=== PATIENT | female | born 1970 | race Caucasian/White ===

== ENCOUNTER 2017-12-11 20:17 | Inpatient (IN) | payer SELFPAY ==
[~2017-12-11] VITALS: Ht 167.6 cm; Wt 97.8 kg
[2017-12-11 21:12] LABS: BASOPHILS % (AUTO) 0.6 % (0.0-5.0); EOSINOPHILS % (AUTO) 3.4 % (0.0-8.0); HEMATOCRIT 41.2 % (42-54); LYMPHOCYTES % (AUTO) 31.3 % (21.0-51.0); MEAN CORPUSCULAR HEMOGLOBIN 30.6 pg (27.0-33.0); MEAN CORPUSCULAR HGB CONC 34.1 g/dL (32.0-36.0); MEAN CORPUSCULAR VOLUME 89.7 fL (79-99); MONOCYTES % (AUTO) 8.5 % (3.0-13.0); NEUTROPHILS % (AUTO) 56.2 % (40.0-77.0); PLATELET COUNT (AUTO) 183 K/uL (130-400); RED BLOOD CELL COUNT(AUTO) 4.59 MIL/uL (4.50-6.20); RED CELL DISTRIBUTION WIDTH 13.4 % (11.0-15.5); WHITE BLOOD COUNT (AUTO) 6.2 K/uL (4.8-10.8)
[2017-12-11] MEDS ORDERED: IPRATROPIUM/ALBUTEROL SULFATE 3 ML SOLUTION IH ONE (21:16)
[2017-12-11 21:27] LABS: INR 0.96 (0.85-1.15); PARTIAL THROMBOPLASTIN TIME 23.7 SEC (26.3-35.5); PROTHROMBIN TIME 10.1 SEC (9.6-11.6)
[2017-12-11 21:33] LABS: RAPID GROUP A STREP NEGATIVE (NEGATIVE)
[2017-12-11] MEDS ORDERED: NITROGLYCERIN 0.4 MG SL TAB SL ONE (21:42)
[2017-12-11 21:45] LABS: ALANINE AMINOTRANSFERASE 30 U/L (12-78); ALBUMIN 3.8 g/dL (3.5-5.0); ASPARTATE AMINOTRANSFERASE 14 U/L (10-37); BILIRUBIN,TOTAL 0.4 mg/dL (0.2-1.0); CARBON DIOXIDE 29 mmol/L (21-32); CHLORIDE 94 mmol/L (101-111); CREATINE KINASE MB < 0.5 ng/mL (0.5-3.6); CREATINE KINASE, TOTAL 42 U/L (21-232); CREATININE 1.1 mg/dL (0.5-1.5); GLOMERULAR FILTR. RATE CALC 56 mL/min (>60); POTASSIUM 3.8 mmol/L (3.5-5.1); SODIUM SERUM 133 mmol/L (136-145); TOTAL PROTEIN, SERUM 7.8 g/dL (6.0-8.3); UREA NITROGEN, BLOOD 20 mg/dL (7-18)
[2017-12-11 21:46] LABS: GLUCOSE,RANDOM 511 mg/dL (70-105)
[2017-12-11 21:57] LABS: APPEARANCE,URINE Clear (CLEAR); BILIRUBIN,URINE Negative (NEGATIVE); COLOR,URINE Yellow (YELLOW); GLUCOSE, URINE (UA) >=1000 mg/dL (NEGATIVE); KETONES,URINE Negative (NEGATIVE); LEUKOCYTE ESTERASE ,URINE Negative (NEGATIVE); NITRATE,URINE Negative (NEGATIVE); OCCULT BLOOD,URINE Large (NEGATIVE); PROTEIN,URINE Negative (NEGATIVE); UROBILINOGEN,URINE 0.2 mg/dL (0.2-1.0)
[2017-12-11 22:14] LABS: WBC,URINE 0-1 /HPF (0-1)
[2017-12-11 22:15] LABS: BACTERIA,URINE Rare /HPF (None Seen); SQUAMOUS EPITHELIAL CELL,UR Few /LPF (0-2)
[2017-12-12] MEDS ORDERED: CEFTRIAXONE SODIUM 1 GM ONE (00:19)
[2017-12-12] MEDS ORDERED: AZITHROMYCIN 250 MG TABLET PO ONE (00:20)
[2017-12-12] MEDS ORDERED: SODIUM CHLORIDE 0.9% 1000ML 1,000 ML IV ONE (00:20)
[2017-12-12] MEDS: SODIUM CHLORIDE 0.9% 1000ML 1,000 ML IV SCH ×2 (04:38→14:38)
[2017-12-12] MEDS ORDERED: ACETAMINOPHEN-CODEINE 300/30MG TAB PO PRN (04:45)
[2017-12-12] MEDS: AZITHROMYCIN 500MG+NS 250ML 250 ML IV SCH (04:45)
[2017-12-12] MEDS ORDERED: CEFTRIAXONE 1GM/D5W 50ML 50 ML IV SCH (04:45)
[2017-12-12] MEDS ORDERED: ONDANSETRON HCL 4 MG/2 ML VIAL IV PRN (04:45)
[2017-12-12] MEDS ORDERED: ACETAMINOPHEN 325 MG TAB PO PRN (04:45)
[2017-12-12] MEDS ORDERED: HYDRALAZINE HCL 20 MG/ML VIAL IV PRN (04:45)
[2017-12-12 06:35] LABS: CREATININE 0.8 mg/dL (0.5-1.5); POTASSIUM 3.9 mmol/L (3.5-5.1)
[2017-12-12 06:46] LABS: BASOPHILS % (AUTO) 0.5 % (0.0-5.0); EOSINOPHILS % (AUTO) 3.3 % (0.0-8.0); HEMATOCRIT 40.4 % (36-48); LYMPHOCYTES % (AUTO) 36.1 % (21.0-51.0); MEAN CORPUSCULAR HEMOGLOBIN 30.6 pg (27.0-33.0); MEAN CORPUSCULAR VOLUME 89.8 fL (79-99); MONOCYTES % (AUTO) 7.5 % (3.0-13.0); NEUTROPHILS % (AUTO) 52.6 % (40.0-77.0); PLATELET COUNT (AUTO) 194 K/uL (130-400); RED CELL DISTRIBUTION WIDTH 13.4 % (11.0-15.5); WHITE BLOOD COUNT (AUTO) 6.2 K/uL (4.8-10.8)
[2017-12-12] MEDS ORDERED: IPRATROPIUM/ALBUTEROL SULFATE 3 ML SOLUTION IH ONE ×2 (07:11→13:16)
[2017-12-12] MEDS: IPRATROPIUM/ALBUTEROL SULFATE 3 ML SOLUTION IH SCH ×5 (07:24→21:29)
[2017-12-12] MEDS: INSULIN LISPRO 100 UNIT/ML 3ML SQ SCH ×4 (07:30→22:34)
[2017-12-12] MEDS: METHYLPREDNISOLONE SOD SUCC 125MG/2ML VIAL IV SCH ×2 (09:00→22:24)
[2017-12-12] MEDS: ENOXAPARIN SODIUM 40 MG/0.4 ML SYRINGE SQ SCH (09:00)
[2017-12-12] MEDS: PANTOPRAZOLE SODIUM 40 MG TABLET.DR PO SCH (09:00)
[2017-12-12] MEDS ORDERED: ENOXAPARIN SODIUM 40 MG/0.4 ML SYRINGE SQ ONE (09:47)
[2017-12-12] MEDS ORDERED: METHYLPREDNISOLONE SOD SUCC 40MG/ML 1ML ONE (09:47)
[2017-12-12] MEDS ORDERED: PANTOPRAZOLE SODIUM 40 MG TABLET.DR PO ONE (09:47)
[2017-12-12] MEDS ORDERED: AZITHROMYCIN 500MG+NS 250ML 250 ML IV ONE (09:47)
[2017-12-12 17:15] VITALS: BP 151/100
[2017-12-12] MEDS ORDERED: PRAS10TA6 PO (18:52)
[2017-12-12] MEDS ORDERED: GABA300S PO (18:52)
[2017-12-12] MEDS ORDERED: OMEG1CAP31 PO (18:52)
[2017-12-12] MEDS ORDERED: PITA2TAB2 PO (18:52)
[2017-12-12] MEDS ORDERED: OXCA300O4 PO (18:52)
[2017-12-12] MEDS ORDERED: SERT100T12 PO (18:52)
[2017-12-12] MEDS ORDERED: BUSP15TA3 PO (18:52)
[2017-12-12] MEDS ORDERED: OLME40TA8 PO (18:52)
[2017-12-12] MEDS ORDERED: ASPI-1114 PO (18:52)
[2017-12-12] MEDS ORDERED: INSU100V12 SQ (18:52)
[2017-12-12 20:25] VITALS: BP 121/71
[2017-12-12] MEDS: CEFTRIAXONE SODIUM 1 GM IVP SCH (22:24)
[2017-12-13] VITALS (8 sets, daily range): BP systolic 126–148; BP diastolic 51–96
[2017-12-13] MEDS: IPRATROPIUM/ALBUTEROL SULFATE 3 ML SOLUTION IH SCH ×6 (01:22→22:46)
[2017-12-13] MEDS: AZITHROMYCIN 500MG+NS 250ML 250 ML IV SCH (04:49)
[2017-12-13] MEDS: INSULIN LISPRO 100 UNIT/ML 3ML SQ SCH (06:56)
[2017-12-13] MEDS: SODIUM CHLORIDE 0.9% 1000ML 1,000 ML IV SCH ×2 (11:00→21:40)
[2017-12-13] MEDS: PANTOPRAZOLE SODIUM 40 MG TABLET.DR PO SCH (11:01)
[2017-12-13] MEDS: METHYLPREDNISOLONE SOD SUCC 125MG/2ML VIAL IV SCH ×2 (11:01→21:40)
[2017-12-13] MEDS: ENOXAPARIN SODIUM 40 MG/0.4 ML SYRINGE SQ SCH (11:02)
[2017-12-13] MEDS ORDERED: CEFD300C3 PO (11:53)
[2017-12-13] MEDS ORDERED: ALBU8.5H8 IH (11:53)
[2017-12-13] MEDS ORDERED: AZIT500T4 PO (11:53)
[2017-12-13] MEDS: INSULIN HUMULIN R 100 UNIT/ML 3ML SQ SCH ×3 (15:06→22:01)
[2017-12-13] MEDS ORDERED: INSULIN HUMULIN R 100 UNIT/ML 3ML SQ SCH ×2 (16:30→18:30)
[2017-12-13] MEDS: CEFTRIAXONE SODIUM 1 GM IVP SCH (21:39)
[2017-12-14] MEDS: IPRATROPIUM/ALBUTEROL SULFATE 3 ML SOLUTION IH SCH ×3 (02:02→10:20)
[2017-12-14 03:47] VITALS: BP 126/58
[2017-12-14] MEDS: AZITHROMYCIN 500MG+NS 250ML 250 ML IV SCH (04:56)
[2017-12-14] MEDS: SODIUM CHLORIDE 0.9% 1000ML 1,000 ML IV SCH (06:18)
[2017-12-14] MEDS: INSULIN HUMULIN R 100 UNIT/ML 3ML SQ SCH ×2 (06:24→12:11)
[2017-12-14 07:54] VITALS: BP 110/71
[2017-12-14] MEDS: METHYLPREDNISOLONE SOD SUCC 125MG/2ML VIAL IV SCH (09:50)
[2017-12-14] MEDS: ENOXAPARIN SODIUM 40 MG/0.4 ML SYRINGE SQ SCH (09:50)
[2017-12-14] MEDS: PANTOPRAZOLE SODIUM 40 MG TABLET.DR PO SCH (09:50)
[2017-12-14 11:48] VITALS: BP 121/69
== END 2017-12-14 13:30 | disposition home or self-care (01) | DRG 195 ==
LOC: EDSEX 20:17 → EDH 20:17 → EDHIP 20:18 → 4DH 12-12 16:55 → 4CH 12-13 18:52
PROVIDERS: ADMIT Family Medicine; ATTEND Family Medicine
DX: J18.1 Lobar pneumonia, unspecified organism (principal); I11.0 Hypertensive heart disease with heart failure; I50.9 Heart failure, unspecified; E11.65 Type 2 diabetes mellitus with hyperglycemia; I25.10 Atherosclerotic heart disease of native coronary artery without angina pectoris; F31.9 Bipolar disorder, unspecified; F43.10 Post-traumatic stress disorder, unspecified; F17.200 Nicotine dependence, unspecified, uncomplicated; E86.0 Dehydration
CPT/HCPCS: 36415; 71046; 80048; 80053; 81001; 82550; 82553; 82947; 82948; 84484; 85025; 85610; 85730; 87804; 87880; 93005; 94640; 94664; 99291; A4218; J0456; J0696; J1650; J1815; J2920; J2930; J7030

== ENCOUNTER 2018-05-15 00:29 | Observation (INO) | payer OTHER ==
[~2018-05-15] VITALS: Ht 167.6 cm; Wt 100.7 kg
[~2018-05-15 00:29] MED LIST: ALBU8.5H8 IH; ASPI-1114 PO; AZIT500T4 PO; BUSP15TA3 PO; CEFD300C3 PO; GABA300S PO; INSU100V12 SQ; OLME40TA8 PO; OMEG1CAP31 PO; OXCA300O4 PO; PITA2TAB2 PO; PRAS10TA6 PO; SERT100T12 PO
[2018-05-15] MEDS ORDERED: ASPIRIN 325 MG TABLET ONE (00:48)
[2018-05-15] MEDS ORDERED: LORAZEPAM 2 MG/ML 1 ML VIAL ONE (00:49)
[2018-05-15 00:57] LABS: BASOPHILS % (AUTO) 0.7 % (0.0-5.0); EOSINOPHILS % (AUTO) 4.1 % (0.0-8.0); LYMPHOCYTES % (AUTO) 25.2 % (21.0-51.0); MEAN CORPUSCULAR HEMOGLOBIN 31.2 pg (27.0-33.0); MEAN CORPUSCULAR HGB CONC 35.1 g/dL (32.0-36.0); MEAN CORPUSCULAR VOLUME 88.8 fL (79-99); MONOCYTES % (AUTO) 7.9 % (3.0-13.0); NEUTROPHILS % (AUTO) 62.1 % (40.0-77.0); NUCLEATED RED BLOOD CELLS 0.1 % (0.0-0.19); PLATELET COUNT (AUTO) 223 K/uL (130-400); RED BLOOD CELL COUNT(AUTO) 4.28 MIL/uL (4.00-5.50); RED CELL DISTRIBUTION WIDTH 13.9 % (11.0-15.5); WHITE BLOOD COUNT (AUTO) 7.4 K/uL (4.8-10.8)
[2018-05-15 01:04] LABS: CREATININE 0.8 mg/dL (0.5-1.5); POTASSIUM 3.1 mmol/L (3.5-5.1)
[2018-05-15 01:10] LABS: B-TYPE NATRIURETIC PEPTIDE 67 pg/mL (0-100)
[2018-05-15 01:11] LABS: INR 0.95 (0.85-1.15); PARTIAL THROMBOPLASTIN TIME 25.3 SEC (26.3-35.5)
[2018-05-15 01:28] LABS: ALBUMIN 3.4 g/dL (3.5-5.0); BILIRUBIN,TOTAL 0.3 mg/dL (0.2-1.0); CREATINE KINASE MB 0.6 ng/mL (0.5-3.6); TOTAL PROTEIN, SERUM 6.7 g/dL (6.0-8.3)
[2018-05-15] MEDS ORDERED: POTASSIUM BICARB/CIT AC 25 MEQ TABLET.EFF ONE (01:49)
[2018-05-15] MEDS ORDERED: POTASSIUM CHLORIDE 10% ELIXIR 20 MEQ/15 ML UDCUP PO PRN ×2 (04:30)
[2018-05-15] MEDS ORDERED: POTASSIUM CHLORIDE 20MEQ/100ML 100 ML IV PRN ×2 (04:30)
[2018-05-15] MEDS ORDERED: DEXTROSE 50%-WATER 50 ML DISP.SYRIN IV PRN (04:30)
[2018-05-15] MEDS ORDERED: GLUCAGON 1MG KIT 1 MG ML IM PRN (04:30)
[2018-05-15] MEDS ORDERED: LIDOCAINE HCL-MPF 1% 2ML VIAL IVP PRN ×2 (04:30)
[2018-05-15] MEDS ORDERED: POTASSIUM CHLORIDE 20 MEQ ERTAB PO PRN ×2 (04:30)
[2018-05-15 05:00] VITALS: BP 136/82
[2018-05-15] MEDS ORDERED: ONDANSETRON HCL MDV 20ML 2 MG/ML VIAL IVP PRN (05:45)
[2018-05-15] MEDS ORDERED: NITROGLYCERIN 0.4 MG SL TAB SL PRN (05:45)
[2018-05-15] MEDS: INSULIN HUMULIN R 100 UNIT/ML 3ML SQ SCH ×4 (05:45→21:15)
[2018-05-15] MEDS ORDERED: INSULIN HUMULIN R 100 UNIT/ML 3ML ONE (05:47)
[2018-05-15] MEDS: INSULIN GLARGINE 100 UNITS/ML 10 ML VIAL SQ SCH ×2 (05:53→19:42)
[2018-05-15 07:00] VITALS: BP 136/96
[2018-05-15] MEDS: ASPIRIN 325MG EC TAB 325 MG TABLET.DR PO SCH (08:29)
[2018-05-15] MEDS: FAMOTIDINE 20MG TAB 20 MG TAB PO SCH ×2 (08:29→19:39)
[2018-05-15] MEDS: ENOXAPARIN SODIUM 40 MG/0.4 ML SYRINGE SQ SCH (08:29)
[2018-05-15 08:42] LABS: ALBUMIN 3.1 g/dL (3.5-5.0); BILIRUBIN,TOTAL 0.2 mg/dL (0.2-1.0); CREATININE 0.8 mg/dL (0.5-1.5); POTASSIUM 3.9 mmol/L (3.5-5.1); TOTAL PROTEIN, SERUM 6.3 g/dL (6.0-8.3)
[2018-05-15 08:44] LABS: CREATINE KINASE, TOTAL 43 U/L (21-232); MYOGLOBIN 20 ng/mL (10-92)
[2018-05-15 08:45] LABS: CREATINE KINASE MB 0.5 ng/mL (0.5-3.6); TROPONIN I < 0.04 ng/mL (0.00-0.06)
[2018-05-15] MEDS: NITROGLYCERIN 1GM/1 INCH PACKET TD SCH ×2 (09:32→16:15)
[2018-05-15 12:00] VITALS: BP 142/89
[2018-05-15] MEDS: OXCARBAZEPINE 300 MG TAB PO SCH ×2 (13:22→19:39)
[2018-05-15] MEDS: BUSPIRONE HCL 5 MG TABLET PO SCH ×2 (13:22→19:39)
[2018-05-15 13:57] LABS: CREATINE KINASE MB 0.7 ng/mL (0.5-3.6); CREATINE KINASE, TOTAL 43 U/L (21-232); MYOGLOBIN 17 ng/mL (10-92); TROPONIN I < 0.04 ng/mL (0.00-0.06)
[2018-05-15 16:00] VITALS: BP 136/84
[2018-05-15] MEDS: CARVEDILOL 3.125 MG TABLET PO SCH (19:39)
[2018-05-15 19:51] VITALS: BP 157/89
[2018-05-15 23:40] VITALS: BP 139/90
[2018-05-16] MEDS: NITROGLYCERIN 1GM/1 INCH PACKET TD SCH ×3 (01:36→16:47)
[2018-05-16 04:09] VITALS: BP 121/79
[2018-05-16] MEDS: INSULIN HUMULIN R 100 UNIT/ML 3ML SQ SCH ×4 (06:23→21:53)
[2018-05-16] MEDS: INSULIN GLARGINE 100 UNITS/ML 10 ML VIAL SQ SCH ×2 (06:23→21:51)
[2018-05-16 07:00] VITALS: BP 143/78
[2018-05-16] MEDS: ENOXAPARIN SODIUM 40 MG/0.4 ML SYRINGE SQ SCH (08:09)
[2018-05-16] MEDS: LIVALO 2 MG PO SCH (09:00)
[2018-05-16] MEDS: CARVEDILOL 3.125 MG TABLET PO SCH ×2 (09:00→22:01)
[2018-05-16] MEDS: BUSPIRONE HCL 5 MG TABLET PO SCH ×3 (09:16→22:00)
[2018-05-16] MEDS: PRASUGREL HCL 10 MG TABLET PO SCH (09:16)
[2018-05-16] MEDS: SERTRALINE HCL 50 MG TABLET PO SCH (09:17)
[2018-05-16] MEDS: OXCARBAZEPINE 300 MG TAB PO SCH ×3 (09:17→22:01)
[2018-05-16] MEDS: LOSARTAN 100 MG TABLET PO SCH (09:17)
[2018-05-16] MEDS: ASPIRIN 325MG EC TAB 325 MG TABLET.DR PO SCH (09:17)
[2018-05-16] MEDS: LORAZEPAM 0.5 MG TABLET PO PRN ×2 (09:17→16:51)
[2018-05-16] MEDS: FAMOTIDINE 20MG TAB 20 MG TAB PO SCH ×2 (09:17→21:59)
[2018-05-16] MEDS ORDERED: REGADENOSON 0.4 MG/5 ML PF SYG IVP SCH (10:45)
[2018-05-16 13:32] VITALS: BP 141/94
[2018-05-16 16:00] VITALS: BP 141/94
[2018-05-16] MEDS ORDERED: ACETAMINOPHEN 325 MG TAB PO PRN (17:30)
[2018-05-16] MEDS ORDERED: ALPRAZOLAM 0.5 MG TABLET PO PRN (19:45)
[2018-05-16 20:00] VITALS: BP 155/107
[2018-05-16 23:33] VITALS: BP 133/77
[2018-05-17] MEDS: NITROGLYCERIN 1GM/1 INCH PACKET TD SCH ×2 (01:53→09:10)
[2018-05-17 03:41] LABS: BASOPHILS % (AUTO) 0.5 % (0.0-5.0); EOSINOPHILS % (AUTO) 3.4 % (0.0-8.0); HEMATOCRIT 39.9 % (36-48); MEAN CORPUSCULAR HEMOGLOBIN 30.7 pg (27.0-33.0); MEAN CORPUSCULAR HGB CONC 34.7 g/dL (32.0-36.0); MEAN CORPUSCULAR VOLUME 88.5 fL (79-99); MONOCYTES % (AUTO) 8.1 % (3.0-13.0); PLATELET COUNT (AUTO) 219 K/uL (130-400); RED CELL DISTRIBUTION WIDTH 14.2 % (11.0-15.5); WHITE BLOOD COUNT (AUTO) 6.2 K/uL (4.8-10.8)
[2018-05-17 03:42] LABS: CREATININE 0.8 mg/dL (0.5-1.5)
[2018-05-17 03:55] VITALS: BP 114/75
[2018-05-17] MEDS: INSULIN HUMULIN R 100 UNIT/ML 3ML SQ SCH ×2 (06:23→12:09)
[2018-05-17] MEDS: INSULIN GLARGINE 100 UNITS/ML 10 ML VIAL SQ SCH (06:30)
[2018-05-17 07:13] VITALS: BP 161/91
[2018-05-17 07:16] VITALS: BP 122/85
[2018-05-17] MEDS: LIVALO 2 MG PO SCH (09:00)
[2018-05-17] MEDS: ASPIRIN 325MG EC TAB 325 MG TABLET.DR PO SCH (09:07)
[2018-05-17] MEDS: OXCARBAZEPINE 300 MG TAB PO SCH (09:07)
[2018-05-17] MEDS: LOSARTAN 100 MG TABLET PO SCH (09:07)
[2018-05-17] MEDS: BUSPIRONE HCL 5 MG TABLET PO SCH (09:07)
[2018-05-17] MEDS: FAMOTIDINE 20MG TAB 20 MG TAB PO SCH (09:08)
[2018-05-17] MEDS: CARVEDILOL 3.125 MG TABLET PO SCH (09:08)
[2018-05-17] MEDS: SERTRALINE HCL 50 MG TABLET PO SCH (09:08)
[2018-05-17] MEDS: PRASUGREL HCL 10 MG TABLET PO SCH (09:08)
[2018-05-17] MEDS: ENOXAPARIN SODIUM 40 MG/0.4 ML SYRINGE SQ SCH (09:10)
[2018-05-17 11:37] VITALS: BP 137/75
== END 2018-05-17 13:20 | disposition home or self-care (01) ==
LOC: EDH 00:29 → EDHIP 00:30 → 2DH 04:38
PROVIDERS: ADMIT Family Medicine; ATTEND Family Medicine
DX: R07.89 Other chest pain (principal); I25.10 Atherosclerotic heart disease of native coronary artery without angina pectoris; E11.65 Type 2 diabetes mellitus with hyperglycemia; I11.0 Hypertensive heart disease with heart failure; I50.9 Heart failure, unspecified; E78.5 Hyperlipidemia, unspecified; I25.2 Old myocardial infarction; I25.5 Ischemic cardiomyopathy; F17.210 Nicotine dependence, cigarettes, uncomplicated; F31.9 Bipolar disorder, unspecified; F43.10 Post-traumatic stress disorder, unspecified; Z82.49 Family history of ischemic heart disease and other diseases of the circulatory system; Z83.3 Family history of diabetes mellitus; Z95.5 Presence of coronary angioplasty implant and graft; Z79.82 Long term (current) use of aspirin; Z79.899 Other long term (current) drug therapy
CPT/HCPCS: 36415 ×2; 71045; 78452; 80048; 80053 ×2; 80061; 82550 ×3; 82553 ×3; 82948 ×10; 83036; 83874 ×3; 83880; 84484 ×3; 85025 ×2; 85610; 85730; 93005 ×3; 93017; 93306; 96372 ×3; 99285; A9500 ×2; G0378 ×61; J1650 ×3; J1815 ×4; J2060; J2785; 96374

== ENCOUNTER 2018-05-17 23:18 | Emergency (ER) | payer OTHER ==
[2018-05-17 23:32] LABS: BASOPHILS % (AUTO) 0.6 % (0.0-5.0); EOSINOPHILS % (AUTO) 1.1 % (0.0-8.0); HEMATOCRIT 43.4 % (36-48); LYMPHOCYTES % (AUTO) 18.3 % (21.0-51.0); MEAN CORPUSCULAR HEMOGLOBIN 30.4 pg (27.0-33.0); MEAN CORPUSCULAR HGB CONC 34.4 g/dL (32.0-36.0); MEAN CORPUSCULAR VOLUME 88.4 fL (79-99); MONOCYTES % (AUTO) 5.5 % (3.0-13.0); NEUTROPHILS % (AUTO) 74.5 % (40.0-77.0); NUCLEATED RED BLOOD CELLS 0.1 % (0.0-0.19); PLATELET COUNT (AUTO) 226 K/uL (130-400); RED BLOOD CELL COUNT(AUTO) 4.91 MIL/uL (4.00-5.50); RED CELL DISTRIBUTION WIDTH 14.2 % (11.0-15.5); WHITE BLOOD COUNT (AUTO) 9.5 K/uL (4.8-10.8)
[2018-05-17 23:46] LABS: INR 1.03 (0.85-1.15); PARTIAL THROMBOPLASTIN TIME 25.6 SEC (26.3-35.5); PROTHROMBIN TIME 10.8 SEC (9.6-11.6)
[2018-05-18 00:05] LABS: CREATININE 0.9 mg/dL (0.5-1.5)
[2018-05-18 00:31] LABS: ALBUMIN 4.1 g/dL (3.5-5.0); BILIRUBIN,TOTAL 0.6 mg/dL (0.2-1.0); TOTAL PROTEIN, SERUM 7.6 g/dL (6.0-8.3)
== END 2018-05-18 01:15 | disposition home or self-care (01) ==
LOC: EDH 23:18
DX: R00.2 Palpitations (principal); R07.9 Chest pain, unspecified; I25.10 Atherosclerotic heart disease of native coronary artery without angina pectoris; I11.0 Hypertensive heart disease with heart failure; I50.9 Heart failure, unspecified; E11.9 Type 2 diabetes mellitus without complications; E78.5 Hyperlipidemia, unspecified; I25.2 Old myocardial infarction; F43.10 Post-traumatic stress disorder, unspecified; F12.10 Cannabis abuse, uncomplicated
CPT/HCPCS: 36415; 71045; 80053; 82550; 83874; 83880; 84484; 85025; 85610; 85730; 93005; 94761

== ENCOUNTER 2018-09-19 17:10 | Emergency (ER) | payer OTHER ==
[2018-09-19 17:31] LABS: BASOPHILS % (AUTO) 0.9 % (0.0-5.0); EOSINOPHILS % (AUTO) 1.8 % (0.0-8.0); HEMATOCRIT 46.5 % (36-48); LYMPHOCYTES % (AUTO) 24.3 % (21.0-51.0); MEAN CORPUSCULAR HGB CONC 34.6 g/dL (32.0-36.0); MEAN CORPUSCULAR VOLUME 89.6 fL (79-99); NUCLEATED RED BLOOD CELLS 0.1 % (0.0-0.19); PLATELET COUNT (AUTO) 237 K/uL (130-400); RED BLOOD CELL COUNT(AUTO) 5.19 MIL/uL (4.00-5.50); RED CELL DISTRIBUTION WIDTH 13.6 % (11.0-15.5); WHITE BLOOD COUNT (AUTO) 7.9 K/uL (4.8-10.8)
[2018-09-19 17:54] LABS: CREATININE 0.7 mg/dL (0.5-1.5); POTASSIUM 3.6 mmol/L (3.5-5.1)
[2018-09-19 17:56] LABS: PARTIAL THROMBOPLASTIN TIME 26.8 SEC (26.3-35.5); PROTHROMBIN TIME 10.5 SEC (9.6-11.6)
[2018-09-19 17:59] LABS: ALBUMIN 4.2 g/dL (3.5-5.0); BILIRUBIN,TOTAL 0.6 mg/dL (0.2-1.0)
[2018-09-19 18:14] LABS: B-TYPE NATRIURETIC PEPTIDE 63 pg/mL (0-100)
[2018-09-19] MEDS ORDERED: ASPIRIN 325 MG TABLET ONE (18:43)
[2018-09-19] MEDS ORDERED: LORAZEPAM 2 MG/ML 1 ML VIAL ONE (18:44)
== END 2018-09-19 19:34 | disposition home or self-care (01) ==
LOC: EDH 17:10
DX: F41.9 Anxiety disorder, unspecified (principal); I25.10 Atherosclerotic heart disease of native coronary artery without angina pectoris; I11.0 Hypertensive heart disease with heart failure; I50.9 Heart failure, unspecified; E78.5 Hyperlipidemia, unspecified; I25.2 Old myocardial infarction; E11.9 Type 2 diabetes mellitus without complications; F43.10 Post-traumatic stress disorder, unspecified
CPT/HCPCS: 36415; 71045; 80053; 82550; 82948; 83880; 84484; 85025; 85610; 85730; 93005; 96374; 99285; J2060

== ENCOUNTER 2019-06-06 03:02 | Inpatient (IN) | payer OTHER ==
[~2019-06-06] VITALS: Ht 167.6 cm; Wt 91.3 kg
[2019-06-06 03:36] LABS: EOSINOPHILS % (AUTO) 4.1 % (0.0-8.0); HEMATOCRIT 40.2 % (36-48); LYMPHOCYTES % (AUTO) 27.2 % (21.0-51.0); MEAN CORPUSCULAR HEMOGLOBIN 30.4 pg (27.0-33.0); MEAN CORPUSCULAR HGB CONC 34.1 g/dL (32.0-36.0); MEAN CORPUSCULAR VOLUME 89.1 fL (79-99); MONOCYTES % (AUTO) 5.8 % (3.0-13.0); NEUTROPHILS % (AUTO) 61.9 % (40.0-77.0); PLATELET COUNT (AUTO) 208 K/uL (130-400); RED BLOOD CELL COUNT(AUTO) 4.51 MIL/uL (4.00-5.50); RED CELL DISTRIBUTION WIDTH 13.5 % (11.0-15.5); WHITE BLOOD COUNT (AUTO) 8.3 K/uL (4.8-10.8)
[2019-06-06] MEDS ORDERED: ONDANSETRON HCL 4 MG/2 ML VIAL ONE (03:39)
[2019-06-06 03:42] LABS: CREATININE 0.7 mg/dL (0.5-1.5); POTASSIUM 3.5 mmol/L (3.5-5.1)
[2019-06-06 03:47] LABS: ALBUMIN 3.7 g/dL (3.5-5.0); BILIRUBIN,TOTAL 0.2 mg/dL (0.2-1.0)
[2019-06-06 03:51] LABS: B-TYPE NATRIURETIC PEPTIDE 150 pg/mL (0-100)
[2019-06-06] MEDS ORDERED: ASPIRIN 325 MG TABLET ONE (04:32)
[2019-06-06] MEDS ORDERED: FUROSEMIDE 10 MG/ML 4ML VIAL ONE (04:32)
[2019-06-06] MEDS ORDERED: NITROGLYCERIN 1GM/1 INCH PACKET TD ONE (04:32)
[2019-06-06] MEDS ORDERED: ONDANSETRON HCL 4 MG/2 ML VIAL IV PRN (05:00)
[2019-06-06] MEDS ORDERED: IPRATROPIUM/ALBUTEROL SULFATE 3 ML SOLUTION IH PRN (05:00)
[2019-06-06] MEDS ORDERED: DEXTROSE 50%-WATER 50 ML DISP.SYRIN IV PRN (05:00)
[2019-06-06] MEDS ORDERED: GLUCAGON 1MG KIT 1 MG ML IM PRN (05:00)
[2019-06-06] MEDS ORDERED: ACETAMINOPHEN 325 MG TAB PO PRN ×2 (05:00)
[2019-06-06] MEDS ORDERED: NITROGLYCERIN 0.4 MG SL TAB SL PRN (05:00)
[2019-06-06 05:11] LABS: HEMOGLOBIN A1C 9.4 % (4.0-6.0)
[2019-06-06 05:28] LABS: BILIRUBIN,URINE Negative (NEGATIVE); COLOR,URINE Yellow (YELLOW); GLUCOSE, URINE (UA) 500 mg/dL (NEGATIVE); KETONES,URINE Negative (NEGATIVE); LEUKOCYTE ESTERASE ,URINE Small (NEGATIVE); NITRATE,URINE Negative (NEGATIVE); OCCULT BLOOD,URINE Trace (NEGATIVE); PROTEIN,URINE Negative (NEGATIVE); UROBILINOGEN,URINE 0.2 mg/dL (0.2-1.0)
[2019-06-06 05:29] LABS: APPEARANCE,URINE SLIGHTLY CLOUDY (CLEAR)
[2019-06-06] MEDS ORDERED: POTASSIUM CHLORIDE 20MEQ/100ML 100 ML IV PRN (05:30)
[2019-06-06] MEDS ORDERED: MAGNESIUM 2GM PREMIX 50ML 50 ML IV PRN (05:30)
[2019-06-06] MEDS ORDERED: POTASSIUM CHLORIDE 10% ELIXIR 20 MEQ/15 ML UDCUP PO PRN (05:30)
[2019-06-06] MEDS ORDERED: LIDOCAINE HCL-MPF 1% 2ML VIAL IVP PRN (05:30)
[2019-06-06 05:35] LABS: AMPHET/METH SCREEN,URINE NEGATIVE (NEGATIVE); BARBITURATE SCREEN, URINE NEGATIVE (NEGATIVE); BENZODIAZEPINES SCREEN,URINE NEGATIVE (NEGATIVE); CANNABINOID SCREEN,URINE POSITIVE (NEGATIVE); COCAINE SCREEN,URINE NEGATIVE (NEGATIVE); OPIATE SCREEN,URINE NEGATIVE (NEGATIVE); PHENCYCLIDINE SCREEN,URINE NEGATIVE (NEGATIVE)
[2019-06-06 05:40] LABS: BACTERIA,URINE Moderate /HPF (None Seen); TRICHOMONAS,URINE Rare /LPF (None Seen)
[2019-06-06] MEDS: METRONIDAZOLE 500MG/100ML BAG 100 ML IV SCH ×3 (06:00→21:29)
[2019-06-06] MEDS: ZOSYN 3.375GM+NS 50ML 50 ML IV SCH ×3 (06:15→22:55)
[2019-06-06] MEDS ORDERED: METRONIDAZOLE 500MG/100ML BAG 100 ML ONE (06:17)
[2019-06-06] MEDS ORDERED: SODIUM CHLORIDE 3% FOR INHALATION 4 ML/AMP VIAL.NEB IH ONE ×2 (06:51→11:40)
[2019-06-06] MEDS ORDERED: ZOSYN 3.375GM+NS 50ML 50 ML IV ONE (07:20)
[2019-06-06] MEDS: INSULIN HUMULIN R 100 UNIT/ML 3ML SQ SCH ×4 (07:30→21:37)
[2019-06-06] MEDS: FUROSEMIDE 10 MG/ML 4ML VIAL IVP SCH ×2 (08:00→17:33)
[2019-06-06] MEDS ORDERED: FAMOTIDINE 20MG TAB 20 MG TAB ONE (08:34)
[2019-06-06] MEDS ORDERED: ENOXAPARIN SODIUM 40 MG/0.4 ML SYRINGE SQ ONE (08:34)
[2019-06-06] MEDS ORDERED: METOPROLOL TARTRATE 25 MG TAB ONE (08:35)
[2019-06-06] MEDS ORDERED: ASPIRIN 325 MG TABLET PO SCH (09:00)
[2019-06-06] MEDS: ENOXAPARIN SODIUM 40 MG/0.4 ML SYRINGE SQ SCH (09:00)
[2019-06-06] MEDS: FAMOTIDINE 20MG TAB 20 MG TAB PO SCH ×2 (09:00→20:39)
[2019-06-06 11:31] LABS: INR 0.95 (0.85-1.15); PARTIAL THROMBOPLASTIN TIME 27.3 SEC (26.3-35.5)
[2019-06-06 11:46] LABS: CHOLESTEROL 179 mg/dL (<200); CREATINE KINASE, TOTAL 61 U/L (21-232); HDL CHOLESTEROL 113 mg/dL (35-85); LDL DIRECT 116 mg/dL (0-99); MYOGLOBIN 21 ng/mL (10-92); TRIGLYCERIDES 201 mg/dL (30-200); TROPONIN I < 0.04 ng/mL (0.00-0.06)
[2019-06-06 12:50] VITALS: BP 135/85
[2019-06-06] MEDS: METOPROLOL TARTRATE 25 MG TAB PO SCH ×2 (15:02→20:39)
[2019-06-06 16:23] VITALS: BP 122/77
[2019-06-06 19:30] VITALS: BP 117/65
[2019-06-06 20:23] LABS: CREATINE KINASE, TOTAL 38 U/L (21-232); MYOGLOBIN 29 ng/mL (10-92); TROPONIN I < 0.04 ng/mL (0.00-0.06)
[2019-06-07] VITALS (7 sets, daily range): BP systolic 110–152; BP diastolic 79–93
[2019-06-07] MEDS: METRONIDAZOLE 500MG/100ML BAG 100 ML IV SCH ×3 (04:14→22:30)
[2019-06-07 04:35] LABS: BASOPHILS % (AUTO) 0.4 % (0.0-5.0); EOSINOPHILS % (AUTO) 4.1 % (0.0-8.0); HEMATOCRIT 39.9 % (36-48); LYMPHOCYTES % (AUTO) 26.5 % (21.0-51.0); MEAN CORPUSCULAR HEMOGLOBIN 31.1 pg (27.0-33.0); MEAN CORPUSCULAR HGB CONC 34.6 g/dL (32.0-36.0); MEAN CORPUSCULAR VOLUME 89.7 fL (79-99); MONOCYTES % (AUTO) 8.2 % (3.0-13.0); NEUTROPHILS % (AUTO) 60.8 % (40.0-77.0); PLATELET COUNT (AUTO) 205 K/uL (130-400); RED BLOOD CELL COUNT(AUTO) 4.45 MIL/uL (4.00-5.50)
[2019-06-07 04:51] LABS: B-TYPE NATRIURETIC PEPTIDE 98 pg/mL (0-100)
[2019-06-07 04:53] LABS: ALBUMIN 3.4 g/dL (3.5-5.0); BILIRUBIN,TOTAL 0.4 mg/dL (0.2-1.0); CREATININE 0.7 mg/dL (0.5-1.5); MAGNESIUM 1.6 mg/dL (1.80-2.40); POTASSIUM 3.4 mmol/L (3.5-5.1); TOTAL PROTEIN, SERUM 6.5 g/dL (6.0-8.3)
[2019-06-07] MEDS: ZOSYN 3.375GM+NS 50ML 50 ML IV SCH ×3 (06:15→15:05)
[2019-06-07] MEDS: POTASSIUM CHLORIDE 20 MEQ ERTAB PO PRN ×2 (06:24→08:24)
[2019-06-07] MEDS: INSULIN HUMULIN R 100 UNIT/ML 3ML SQ SCH ×4 (06:30→21:08)
[2019-06-07] MEDS: FUROSEMIDE 10 MG/ML 4ML VIAL IVP SCH ×2 (08:23→16:17)
[2019-06-07] MEDS: ASPIRIN 81MG TAB.CHEW PO SCH (08:23)
[2019-06-07] MEDS: FAMOTIDINE 20MG TAB 20 MG TAB PO SCH ×2 (08:23→21:01)
[2019-06-07] MEDS: LOSARTAN 100 MG TABLET PO SCH (08:23)
[2019-06-07] MEDS: ENOXAPARIN SODIUM 40 MG/0.4 ML SYRINGE SQ SCH (08:23)
[2019-06-07] MEDS: METOPROLOL TARTRATE 25 MG TAB PO SCH ×2 (08:23→21:01)
[2019-06-07] MEDS: OXCARBAZEPINE 300 MG TAB PO SCH ×3 (08:27→21:01)
[2019-06-07] MEDS: BUSPIRONE HCL 5 MG TABLET PO SCH ×3 (08:27→21:01)
[2019-06-07] MEDS: PRASUGREL HCL 10 MG TABLET PO SCH (08:27)
[2019-06-07] MEDS ORDERED: POTASSIUM CHLORIDE 20 MEQ ERTAB PO SCH (09:30)
[2019-06-07] MEDS: PITAVASTATIN CALCIUM 2 MG PO SCH (21:00)
[2019-06-07] MEDS: INSULIN GLARGINE 100 UNITS/ML 10 ML VIAL SQ SCH (21:07)
[2019-06-08] MEDS: ZOSYN 3.375GM+NS 50ML 50 ML IV SCH ×4 (00:14→21:31)
[2019-06-08 03:15] VITALS: BP 113/65
[2019-06-08 04:42] LABS: HEMATOCRIT 42.7 % (36-48); MEAN CORPUSCULAR HEMOGLOBIN 30.8 pg (27.0-33.0); MEAN CORPUSCULAR HGB CONC 34.4 g/dL (32.0-36.0); MEAN CORPUSCULAR VOLUME 89.3 fL (79-99); NUCLEATED RED BLOOD CELLS 0.1 % (0.0-0.19); PLATELET COUNT (AUTO) 207 K/uL (130-400); RED BLOOD CELL COUNT(AUTO) 4.78 MIL/uL (4.00-5.50); RED CELL DISTRIBUTION WIDTH 13.8 % (11.0-15.5); WHITE BLOOD COUNT (AUTO) 7.8 K/uL (4.8-10.8)
[2019-06-08] MEDS: METRONIDAZOLE 500MG/100ML BAG 100 ML IV SCH ×3 (04:44→21:01)
[2019-06-08 04:51] LABS: CREATININE 0.7 mg/dL (0.5-1.5); MAGNESIUM 2.1 mg/dL (1.80-2.40); POTASSIUM 3.3 mmol/L (3.5-5.1)
[2019-06-08] MEDS: INSULIN HUMULIN R 100 UNIT/ML 3ML SQ SCH ×4 (07:09→20:14)
[2019-06-08 08:12] VITALS: BP 116/91
[2019-06-08] MEDS: BUSPIRONE HCL 5 MG TABLET PO SCH ×3 (09:07→19:51)
[2019-06-08] MEDS: ASPIRIN 81MG TAB.CHEW PO SCH (09:07)
[2019-06-08] MEDS: FUROSEMIDE 10 MG/ML 4ML VIAL IVP SCH ×2 (09:07→17:10)
[2019-06-08] MEDS: OXCARBAZEPINE 300 MG TAB PO SCH ×3 (09:08→19:51)
[2019-06-08] MEDS: FAMOTIDINE 20MG TAB 20 MG TAB PO SCH ×2 (09:08→19:51)
[2019-06-08] MEDS: METOPROLOL TARTRATE 25 MG TAB PO SCH ×2 (09:08→19:51)
[2019-06-08] MEDS: PRASUGREL HCL 10 MG TABLET PO SCH (09:08)
[2019-06-08] MEDS: LOSARTAN 100 MG TABLET PO SCH (09:08)
[2019-06-08] MEDS: POTASSIUM CHLORIDE 20 MEQ ERTAB PO PRN ×3 (09:15→17:08)
[2019-06-08 11:40] VITALS: BP 117/80
[2019-06-08 16:15] VITALS: BP 101/67
[2019-06-08 19:25] VITALS: BP_SYST 103; BP_SYST 89; BP_DIAS 51; BP_DIAS 71
[2019-06-08] MEDS: PITAVASTATIN CALCIUM 2 MG PO SCH (19:51)
[2019-06-08] MEDS: INSULIN GLARGINE 100 UNITS/ML 10 ML VIAL SQ SCH (20:15)
[2019-06-08 23:40] VITALS: BP 107/59
[2019-06-09 03:42] VITALS: BP 96/68
[2019-06-09] MEDS: ZOSYN 3.375GM+NS 50ML 50 ML IV SCH (04:20)
[2019-06-09] MEDS: METRONIDAZOLE 500MG/100ML BAG 100 ML IV SCH (05:18)
[2019-06-09] MEDS: INSULIN HUMULIN R 100 UNIT/ML 3ML SQ SCH ×2 (05:55→12:05)
[2019-06-09 07:00] VITALS: BP 116/77
[2019-06-09] MEDS: FUROSEMIDE 10 MG/ML 4ML VIAL IVP SCH (09:23)
[2019-06-09] MEDS: FAMOTIDINE 20MG TAB 20 MG TAB PO SCH (09:24)
[2019-06-09] MEDS: ASPIRIN 81MG TAB.CHEW PO SCH (09:24)
[2019-06-09] MEDS: OXCARBAZEPINE 300 MG TAB PO SCH (09:24)
[2019-06-09] MEDS: BUSPIRONE HCL 5 MG TABLET PO SCH (09:24)
[2019-06-09] MEDS: PRASUGREL HCL 10 MG TABLET PO SCH (09:24)
[2019-06-09] MEDS: LOSARTAN 100 MG TABLET PO SCH (09:24)
[2019-06-09] MEDS: METOPROLOL TARTRATE 25 MG TAB PO SCH (09:24)
[2019-06-09 11:00] VITALS: BP 149/93
== END 2019-06-09 13:59 | disposition home or self-care (01) | DRG 292 ==
LOC: EDH 03:02 → EDHIP 03:03 → UNDOADMIN 04:52 → 4AH 12:10
PROVIDERS: ADMIT Hospitalist; ATTEND Hospitalist
DX: I11.0 Hypertensive heart disease with heart failure (principal); N39.0 Urinary tract infection, site not specified; I24.9 Acute ischemic heart disease, unspecified; A59.9 Trichomoniasis, unspecified; I50.23 Acute on chronic systolic (congestive) heart failure; E11.65 Type 2 diabetes mellitus with hyperglycemia; E66.9 Obesity, unspecified; E78.5 Hyperlipidemia, unspecified; F12.90 Cannabis use, unspecified, uncomplicated; F31.9 Bipolar disorder, unspecified; I25.10 Atherosclerotic heart disease of native coronary artery without angina pectoris; F41.9 Anxiety disorder, unspecified; Z68.37 Body mass index [BMI] 37.0-37.9, adult; Z80.1 Family history of malignant neoplasm of trachea, bronchus and lung; Z95.5 Presence of coronary angioplasty implant and graft; Z87.01 Personal history of pneumonia (recurrent); Z83.3 Family history of diabetes mellitus; Z82.49 Family history of ischemic heart disease and other diseases of the circulatory system
CPT/HCPCS: 36415; 71046; 80048; 80053; 80061; 80305; 81001; 82550; 82948; 83036; 83735; 83874; 83880; 84132; 84484; 85025; 85027; 85610; 85730; 87040; 87071; 87077; 87088; 87186; 87205; 87486; 87581; 87633; 87798; 93005; 93306; 94640; 94664; G0378; J1650; J1815; J1940; J2405; J2543; J3475; J3490

== ENCOUNTER → 2021-09-22 | Outpatient (CLI) | payer MEDICAID ==
[~2021-09-22] MED LIST changes: -ALBU8.5H8 IH; -AZIT500T4 PO; -CEFD300C3 PO; -GABA300S PO; +IOHEXOL 350 MG/ML 100ML INFUS..BTL IV ONE; +IOHEXOL-350 50ML VIAL IV ONE; -OMEG1CAP31 PO; -SERT100T12 PO
== END | disposition home or self-care (01) ==
LOC: RAH 10:02
PROVIDERS: ATTEND Internal Medicine Cardiovascular Disease
DX: I73.9 Peripheral vascular disease, unspecified (principal); I70.8 Atherosclerosis of other arteries; K44.9 Diaphragmatic hernia without obstruction or gangrene; K80.20 Calculus of gallbladder without cholecystitis without obstruction
CPT/HCPCS: 75635; J3490; Q9967

== ENCOUNTER 2021-10-17 08:04 | Day surgery (SDC) | payer MEDICAID ==
[2021-10-13 12:17] LABS: BASOPHILS % (AUTO) 0.3 % (0.0-5.0); LYMPHOCYTES % (AUTO) 21.7 % (21.0-51.0); MEAN CORPUSCULAR HEMOGLOBIN 29.2 pg (27.0-33.0); MEAN CORPUSCULAR HGB CONC 32.7 g/dL (32.0-36.0); MEAN CORPUSCULAR VOLUME 89.5 fL (79-99); MONOCYTES % (AUTO) 6.7 % (3.0-13.0); NEUTROPHILS % (AUTO) 68.8 % (40.0-77.0); PLATELET COUNT (AUTO) 230 K/uL (130-400); RED BLOOD CELL COUNT(AUTO) 5.03 MIL/uL (4.00-5.50); RED CELL DISTRIBUTION WIDTH 12.7 % (11.0-15.5); WHITE BLOOD COUNT (AUTO) 7.4 K/uL (4.8-10.8)
[2021-10-13 12:25] LABS: APPEARANCE,URINE Cloudy (CLEAR); BILIRUBIN,URINE Negative (NEGATIVE); COLOR,URINE Yellow (YELLOW); GLUCOSE, URINE (UA) >=1000 mg/dL (NEGATIVE); KETONES,URINE Negative (NEGATIVE); LEUKOCYTE ESTERASE ,URINE Negative (NEGATIVE); NITRATE,URINE Negative (NEGATIVE); OCCULT BLOOD,URINE Negative (NEGATIVE); PROTEIN,URINE Negative (NEGATIVE); UROBILINOGEN,URINE 0.2 mg/dL (0.2-1.0)
[2021-10-13 12:28] LABS: CREATININE 0.8 mg/dL (0.5-1.5); INR 1.05 (0.85-1.15); POTASSIUM 3.6 mmol/L (3.5-5.1); PROTHROMBIN TIME 11.4 SEC (9.6-11.6)
[2021-10-13 12:30] LABS: PARTIAL THROMBOPLASTIN TIME 26.2 SEC (26.3-35.5)
[2021-10-13 12:35] LABS: BACTERIA,URINE Rare /HPF (None Seen); RBC,URINE 0-1 /HPF (0-1); SQUAMOUS EPITHELIAL CELL,UR Few /HPF (0-2); WBC,URINE 0-1 /HPF (0-1)
[2021-10-16 09:12] VITALS: BP 128/82
[~2021-10-17] VITALS: Ht 167.6 cm; Wt 101.8 kg
[2021-10-17] VITALS (10 sets, daily range): BP systolic 106–137; BP diastolic 55–91
[~2021-10-17 08:04] MED LIST changes: -ASPI-1114 PO; +ATOR10 PO; +BUSP10TA3 PO; -BUSP15TA3 PO; +CLOP75TA14 PO; +GABA-529 PO; +HYDR25TA PO; +INSLAN SQ; -INSU100V12 SQ; -IOHEXOL 350 MG/ML 100ML INFUS..BTL IV ONE; -IOHEXOL-350 50ML VIAL IV ONE; +LOSA50TA64 PO; +METF-446 PO; -OLME40TA8 PO; -OXCA300O4 PO; -PITA2TAB2 PO; -PRAS10TA6 PO
[2021-10-17] MEDS ORDERED: LIDOCAINE HCL 400MG/20ML VIAL ONE (11:39)
[2021-10-17] MEDS ORDERED: HEPARIN 10,000 UNIT/10ML (1,000 UNIT/ML) VIAL ONE (11:39)
[2021-10-17] MEDS ORDERED: IODIXANOL 320 MG/ML 100 ML VIAL ONE (11:39)
[2021-10-17] MEDS ORDERED: 0.9%NACL 1000ML 1,000 ML IV ONE (12:03)
[2021-10-17] MEDS ORDERED: NITROGLYCERIN 50MG VIAL IV ONE (12:19)
[2021-10-17] MEDS ORDERED: MIDAZOLAM HCL 1 MG/ML 2ML VIAL ONE (12:20)
[2021-10-17] MEDS ORDERED: FENTANYL CITRATE PF 50 MCG/1 ML 2ML VIAL ONE (12:20)
[2021-10-17] MEDS ORDERED: NICARDIPINE 25MG INJ IV ONE (13:08)
[2021-10-17] MEDS ORDERED: ASPIRIN 325MG EC TAB PO ONE (13:23)
[2021-10-17] MEDS ORDERED: CLOPIDOGREL 300MG TAB ONE (13:28)
[2021-10-17] MEDS ORDERED: HYDRALAZINE 20MG/ML VIAL ONE (14:15)
[2021-10-17] MEDS ORDERED: 0.9%NACL 1000ML 1,000 ML IV SCH (14:30)
== END 2021-10-17 18:30 | disposition home or self-care (01) ==
LOC: DAH 08:04
PROVIDERS: ATTEND Internal Medicine Cardiovascular Disease
DX: I70.212 Atherosclerosis of native arteries of extremities with intermittent claudication, left leg (principal); E11.51 Type 2 diabetes mellitus with diabetic peripheral angiopathy without gangrene; I25.2 Old myocardial infarction; I49.1 Atrial premature depolarization; I25.10 Atherosclerotic heart disease of native coronary artery without angina pectoris; E78.5 Hyperlipidemia, unspecified; Z98.890 Other specified postprocedural states; Z79.899 Other long term (current) drug therapy; Z79.01 Long term (current) use of anticoagulants
CPT/HCPCS: 36415 ×2; 37225; 37229; 71045; 75625; 75716; 80048; 81001; 82948 ×2; 85025; 85347 ×2; 85610; 85730; 93005; A4215; A4221; A4222; A4223; A4663; C1724; C1725 ×2; C1760; C1769 ×3; C1893; C1894 ×2; J0360; J1644 ×4; J2250; J3010; J3490 ×4; J7030; 99156; 99157; Q9967

== ENCOUNTER 2022-07-19 07:14 | Day surgery (SDC) | payer MEDICAID ==
[2022-07-17 11:27] LABS: BASOPHILS % (AUTO) 0.4 % (0.0-5.0); EOSINOPHILS % (AUTO) 3.4 % (0.0-8.0); HEMATOCRIT 42.2 % (36-48); LYMPHOCYTES % (AUTO) 26.7 % (21.0-51.0); MEAN CORPUSCULAR HEMOGLOBIN 29.8 pg (27.0-33.0); MEAN CORPUSCULAR HGB CONC 33.6 g/dL (32.0-36.0); MEAN CORPUSCULAR VOLUME 88.5 fL (79-99); MONOCYTES % (AUTO) 5.1 % (3.0-13.0); NEUTROPHILS % (AUTO) 63.9 % (40.0-77.0); PLATELET COUNT (AUTO) 189 K/uL (130-400); RED BLOOD CELL COUNT(AUTO) 4.77 MIL/uL (4.00-5.50); RED CELL DISTRIBUTION WIDTH 12.8 % (11.0-15.5); WHITE BLOOD COUNT (AUTO) 5.7 K/uL (4.8-10.8)
[2022-07-17 11:34] LABS: CREATININE 0.7 mg/dL (0.5-1.5)
[2022-07-17 11:41] LABS: APPEARANCE,URINE CLEAR (CLEAR); BILIRUBIN,URINE NEGATIVE (NEGATIVE); COLOR,URINE YELLOW (YELLOW); GLUCOSE, URINE (UA) >=1000 mg/dL (NEGATIVE); KETONES,URINE NEGATIVE (NEGATIVE); LEUKOCYTE ESTERASE ,URINE NEGATIVE (NEGATIVE); NITRATE,URINE NEGATIVE (NEGATIVE); OCCULT BLOOD,URINE NEGATIVE (NEGATIVE); PH,URINE 5.5 (5.0-8.0); PROTEIN,URINE NEGATIVE (NEGATIVE); UROBILINOGEN,URINE 0.2 mg/dL (0.2-1.0)
[2022-07-17 11:54] LABS: INR 0.99 (0.85-1.15); PROTHROMBIN TIME 10.8 SEC (9.6-11.6)
[2022-07-17 11:55] LABS: PARTIAL THROMBOPLASTIN TIME 26.6 SEC (26.3-35.5)
[2022-07-17 11:55] LABS: BACTERIA,URINE Rare /HPF (None Seen); RBC,URINE 0-1 /HPF (0-1); WBC,URINE None Seen /HPF (0-1)
[2022-07-18 11:05] VITALS: BP 144/84
[~2022-07-19] VITALS: Ht 167.6 cm; Wt 98.4 kg
[2022-07-19] VITALS (9 sets, daily range): BP systolic 108–174; BP diastolic 66–93
[~2022-07-19 07:14] MED LIST changes: -HYDR25TA PO; +INSU100V SQ; -LOSA50TA64 PO; +METO25TA6 PO; +OLME-11 PO; +vitamin d PO
[2022-07-19] MEDS ORDERED: NITROGLYCERIN 50MG VIAL ONE (07:57)
[2022-07-19] MEDS ORDERED: LIDOCAINE HCL 1% 20 ML VIAL ONE (07:57)
[2022-07-19] MEDS ORDERED: MIDAZOLAM HCL 1 MG/ML 2ML VIAL ONE ×2 (07:57→10:55)
[2022-07-19] MEDS ORDERED: IODIXANOL 320 MG/ML 100 ML VIAL ONE (07:57)
[2022-07-19] MEDS ORDERED: HEPARIN 10,000 UNIT/10ML (1,000 UNIT/ML) VIAL ONE (07:57)
[2022-07-19] MEDS ORDERED: NICARDIPINE 25MG INJ IV ONE (07:57)
[2022-07-19] MEDS ORDERED: FENTANYL CITRATE PF 50 MCG/1 ML 2ML VIAL ONE (07:58)
[2022-07-19] MEDS ORDERED: ASPIRIN 325MG EC TAB PO ONE (09:22)
[2022-07-19] MEDS ORDERED: CLOPIDOGREL 300MG TAB ONE (09:22)
[2022-07-19] MEDS ORDERED: HYDRALAZINE 20MG/ML VIAL ONE (10:05)
[2022-07-19] MEDS ORDERED: 0.9%NACL 1000ML 1,000 ML IV ONE (11:21)
[2022-07-19] MEDS ORDERED: GLUCAGON 1MG KIT 1 MG ML IM PRN (11:30)
[2022-07-19] MEDS ORDERED: 0.9%NACL 1000ML 1,000 ML IV SCH (11:30)
[2022-07-19] MEDS ORDERED: DEXTROSE 50%-WATER 50 ML DISP.SYRIN IV PRN (11:30)
== END 2022-07-19 16:30 | disposition home or self-care (01) ==
LOC: DAH 07:14
PROVIDERS: ATTEND Internal Medicine Cardiovascular Disease
DX: I70.211 Atherosclerosis of native arteries of extremities with intermittent claudication, right leg (principal); I70.92 Chronic total occlusion of artery of the extremities; E11.51 Type 2 diabetes mellitus with diabetic peripheral angiopathy without gangrene; I25.10 Atherosclerotic heart disease of native coronary artery without angina pectoris; I10 Essential (primary) hypertension; E78.5 Hyperlipidemia, unspecified; F17.200 Nicotine dependence, unspecified, uncomplicated; Z79.4 Long term (current) use of insulin; Z79.899 Other long term (current) drug therapy; Z79.82 Long term (current) use of aspirin; Z79.01 Long term (current) use of anticoagulants; Z98.890 Other specified postprocedural states; Z95.5 Presence of coronary angioplasty implant and graft
CPT/HCPCS: 80048; 85025; 85610; 85730; 81001; 36415 ×2; 71045; 93005; 75716; 85347 ×2; 82948 ×3; C9774 ×2; C1894 ×2; C1769 ×4; C1760; C1887; C1724; C1727; J3010; J7030; J0360; J3490 ×3; J1644 ×3; J2250 ×2; A4215; A4335; A4222; A4221; A4663; A4216; A4606; A4223 ×3; A4554; 99156; 99157; Q9967

== ENCOUNTER 2023-06-10 16:49 | Emergency (ER) | payer MEDICAID, OTHER ==
[~2023-06-10] VITALS: Ht 167.6 cm; Wt 95.7 kg
[~2023-06-10 16:49] MED LIST changes: +CLOP-31 PO; -CLOP75TA14 PO
[2023-06-10 18:59] LABS: BASOPHILS % (AUTO) 0.4 % (0.0-5.0); EOSINOPHILS % (AUTO) 1.3 % (0.0-8.0); HEMATOCRIT 45.7 % (36-48); LYMPHOCYTES % (AUTO) 25.2 % (21.0-51.0); MEAN CORPUSCULAR HEMOGLOBIN 29.3 pg (27.0-33.0); MEAN CORPUSCULAR HGB CONC 33.5 g/dL (32.0-36.0); MEAN CORPUSCULAR VOLUME 87.5 fL (79-99); MONOCYTES % (AUTO) 7.1 % (3.0-13.0); NEUTROPHILS % (AUTO) 65.6 % (40.0-77.0); PLATELET COUNT (AUTO) 198 K/uL (130-400); RED BLOOD CELL COUNT(AUTO) 5.22 MIL/uL (4.00-5.50); RED CELL DISTRIBUTION WIDTH 12.6 % (11.0-15.5); WHITE BLOOD COUNT (AUTO) 8.2 K/uL (4.8-10.8)
[2023-06-10 19:15] LABS: CREATININE 0.8 mg/dL (0.5-1.5); POTASSIUM 3.1 mmol/L (3.5-5.1)
[2023-06-10 19:20] LABS: ALBUMIN 4.1 g/dL (3.5-5.0); TOTAL PROTEIN, SERUM 7.9 g/dL (6.0-8.3)
[2023-06-10 19:23] LABS: APPEARANCE,URINE CLEAR (CLEAR); BILIRUBIN,URINE NEGATIVE (NEGATIVE); COLOR,URINE COLORLESS (YELLOW); GLUCOSE, URINE (UA) >=1000 mg/dL (NEGATIVE); KETONES,URINE NEGATIVE (NEGATIVE); LEUKOCYTE ESTERASE ,URINE 25 Leu/uL (NEGATIVE); NITRATE,URINE NEGATIVE (NEGATIVE); PROTEIN,URINE NEGATIVE (NEGATIVE); UROBILINOGEN,URINE 0.2 mg/dL (0.2-1.0)
[2023-06-10 19:28] LABS: BACTERIA,URINE RARE /HPF (None Seen); MUCUS,URINE RARE LPF (None Seen); SQUAMOUS EPITHELIAL CELL,UR FEW /HPF (0-2); WBC,URINE 0-1 /HPF (0-1)
[2023-06-10] MEDS ORDERED: CEFTRIAXONE 1G VIAL IVPB SCH (19:30)
[2023-06-10] MEDS ORDERED: 0.9%NACL 1000ML 1,000 ML IV SCH (19:30)
[2023-06-10] MEDS ORDERED: INSULIN HUMULIN R 100 UNIT/ML 3ML IV SCH (19:30)
[2023-06-10 19:41] VITALS: BP 129/76
[2023-06-10] MEDS ORDERED: LIDOCAINE HCL 1% 20 ML VIAL ONE (19:48)
[2023-06-10] MEDS ORDERED: MORPHINE 4 MG SYG IVP ONE (20:00)
[2023-06-10] MEDS ORDERED: ONDANSETRON 4MG INJ IVP ONE (20:00)
[2023-06-10] MEDS ORDERED: POTASSIUM BICARB/CIT AC 25 MEQ TABLET.EFF PO SCH (20:00)
[2023-06-10] MEDS ORDERED: FLUCONAZOLE 100 MG TAB ONE (20:05)
[2023-06-10] MEDS ORDERED: AMOX1TAB16 PO (20:10)
[2023-06-10] MEDS ORDERED: SULF1TAB42 PO (20:10)
[2023-06-10] MEDS ORDERED: FLUCONAZOLE 100 MG TAB PO SCH (20:30)
== END 2023-06-10 20:23 | disposition home or self-care (01) ==
LOC: EDH 16:49
DX: R60.9 Edema, unspecified (principal); L02.11 Cutaneous abscess of neck; B37.31 Acute candidiasis of vulva and vagina; E87.6 Hypokalemia; N39.0 Urinary tract infection, site not specified; I10 Essential (primary) hypertension; E11.9 Type 2 diabetes mellitus without complications; E78.00 Pure hypercholesterolemia, unspecified; Z79.84 Long term (current) use of oral hypoglycemic drugs; Z79.899 Other long term (current) drug therapy; Z98.890 Other specified postprocedural states
CPT/HCPCS: 10080; 99284; 96374; 96375; 80053; 83690; 85025; 87040 ×2; 82948; 83605; 81001; 36415; 84145; J1815; J7030; J0696; J2405; J2270

== ENCOUNTER 2023-11-06 14:27 | Inpatient (IN) | payer OTHER ==
[2023-11-06] VITALS (22 sets, daily range): BP systolic 124–198; BP diastolic 72–113; PULSE 67–103; RESP 10–21; O2SAT 95–96
[~2023-11-06] VITALS: Ht 167.6 cm; Wt 90.7 kg
[~2023-11-06 14:27] MED LIST changes: +AMOX1TAB16 PO; +SULF1TAB42 PO
[2023-11-06] MEDS ORDERED: NITROGLYCERIN 0.4 MG SL TAB SL ONE (14:36)
[2023-11-06] MEDS ORDERED: TICAGRELOR 90 MG TABLET ONE (14:36)
[2023-11-06] MEDS ORDERED: HEPARIN 5,000 UNIT VIAL ONE (14:36)
[2023-11-06] MEDS ORDERED: ASPIRIN 325MG TAB ONE (14:36)
[2023-11-06] MEDS ORDERED: IOHEXOL 350 MG/ML 100ML INFUS..BTL IV ONE ×2 (14:37→15:53)
[2023-11-06] MEDS ORDERED: ATROPINE 1MG SYG IVP ONE (14:37)
[2023-11-06] MEDS ORDERED: LIDOCAINE HCL 400MG/20ML VIAL ONE (14:37)
[2023-11-06] MEDS ORDERED: DOPAMINE HCL 400 MG/D5%-WATER 0 ML IV ONE (14:38)
[2023-11-06] MEDS ORDERED: HEPARIN 10,000 UNIT/10ML (1,000 UNIT/ML) VIAL ONE (14:38)
[2023-11-06] MEDS ORDERED: NITROGLYCERIN 50MG VIAL ONE (14:38)
[2023-11-06 14:42] LABS: BASOPHILS # (AUTO) 0.03 K/uL (0.00-0.20); BASOPHILS % (AUTO) 0.4 % (0.0-5.0); EOSINOPHILS # (AUTO) 0.09 K/uL (0.00-0.70); EOSINOPHILS % (AUTO) 1.2 % (0.0-8.0); HEMATOCRIT 49.9 % (36-48); IMMATURE GRANULOCYTE ABSOLUTE 0.03 K/uL (0-1); LYMPHOCYTES # (AUTO) 2.3 K/uL (1.0-4.8); LYMPHOCYTES % (AUTO) 30.8 % (21.0-51.0); MEAN CORPUSCULAR HEMOGLOBIN 29.8 pg (27.0-33.0); MEAN CORPUSCULAR HGB CONC 34.1 g/dL (32.0-36.0); MEAN CORPUSCULAR VOLUME 87.4 fL (79-99); MONOCYTES # (AUTO) 0.5 K/uL (0.1-1.0); MONOCYTES % (AUTO) 6.7 % (3.0-13.0); NEUTROPHILS # (AUTO) 4.5 K/uL (1.8-7.7); NEUTROPHILS % (AUTO) 60.5 % (40.0-77.0); PLATELET COUNT (AUTO) 235 K/uL (130-400); RED BLOOD CELL COUNT(AUTO) 5.71 MIL/uL (4.00-5.50); RED CELL DISTRIBUTION WIDTH 12.6 % (11.0-15.5); WHITE BLOOD COUNT (AUTO) 7.4 K/uL (4.8-10.8)
[2023-11-06] MEDS ORDERED: MIDAZOLAM HCL 1 MG/ML 2ML VIAL ONE ×2 (14:43→15:39)
[2023-11-06] MEDS ORDERED: FENTANYL CITRATE PF 50 MCG/1 ML 2ML VIAL ONE (14:43)
[2023-11-06 14:54] LABS: CREATININE 0.7 mg/dL (0.5-1.5); POTASSIUM 3.6 mmol/L (3.5-5.1)
[2023-11-06 14:58] LABS: ALBUMIN 4.3 g/dL (3.5-5.0); BILIRUBIN,TOTAL 0.7 mg/dL (0.2-1.0); TOTAL PROTEIN, SERUM 8.3 g/dL (6.0-8.3)
[2023-11-06] MEDS ORDERED: TICAGRELOR 90 MG TABLET PO SCH (15:00)
[2023-11-06] MEDS ORDERED: NITROGLYCERIN 0.4 MG SL TAB SL PRN (15:00)
[2023-11-06] MEDS ORDERED: ASPIRIN 325MG TAB PO ONE (15:00)
[2023-11-06] MEDS ORDERED: HEPARIN 5,000 UNIT VIAL SQ SCH (15:00)
[2023-11-06] MEDS ORDERED: HYDRALAZINE 20MG/ML VIAL ONE (16:04)
[2023-11-06] MEDS ORDERED: 0.9%NACL 1000ML 1,000 ML IV SCH (16:30)
[2023-11-06] MEDS ORDERED: TICAGRELOR 90 MG TABLET PO ONE (16:30)
[2023-11-06] MEDS ORDERED: HEPARIN 5,000 UNIT VIAL SQ ONE (17:00)
[2023-11-06] MEDS ORDERED: POTASSIUM CHLORIDE 20MEQ/100ML 100 ML IV PRN (19:30)
[2023-11-06] MEDS ORDERED: POTASSIUM CHLORIDE 10% ELIXIR 20 MEQ/15 ML UDCUP PO PRN (19:30)
[2023-11-06 19:42] LABS: HEMOGLOBIN A1C 10.5 % (4.0-6.0)
[2023-11-06] MEDS ORDERED: MORPHINE 2 MG SYG IVP PRN (20:00)
[2023-11-06] MEDS ORDERED: THIAMINE HCL 100 MG TABLET PO SCH (20:00)
[2023-11-06] MEDS ORDERED: ACETAMINOPHEN 325 MG TAB PO PRN (20:00)
[2023-11-06] MEDS ORDERED: ONDANSETRON 4MG INJ ONE (20:07)
[2023-11-06] MEDS ORDERED: THIAMINE HCL 100 MG TABLET ONE (20:35)
[2023-11-06] MEDS: TICAGRELOR 90 MG TABLET PO SCH (20:38)
[2023-11-06] MEDS: METOPROLOL TARTRATE 25 MG TAB PO SCH (20:38)
[2023-11-06] MEDS: ATORVASTATIN 40 MG TABLET PO SCH (20:39)
[2023-11-06] MEDS: BUSPIRONE HCL 5 MG TABLET PO SCH (20:39)
[2023-11-06] MEDS ORDERED: CHLORDIAZEPOXIDE HCL 25 MG CAP PO PRN (21:00)
[2023-11-06] MEDS ORDERED: LORAZEPAM 2 MG/ML 1 ML VIAL IVP PRN (21:00)
[2023-11-06] MEDS ORDERED: PHARMACY COMMUNICATION MISC PRN (21:00)
[2023-11-06] MEDS ORDERED: INSULIN GLARGINE 100 UNITS/ML 10 ML VIAL SQ SCH (21:00)
[2023-11-06] MEDS: THIAMINE HCL 100 MG/ML 2ML VIAL IVP SCH (21:50)
[2023-11-06] MEDS: HYDRALAZINE 20MG/ML VIAL IV PRN (21:50)
[2023-11-06] MEDS: INSULIN HUMULIN R 100 UNIT/ML 3ML SQ SCH (21:52)
[2023-11-07] VITALS (31 sets, daily range): BP systolic 127–170; BP diastolic 73–106; PULSE 73–110; RESP 10–29; O2SAT 97–98
[2023-11-07 00:40] LABS: ADD UA MICROSCOPIC YES; APPEARANCE,URINE CLEAR (CLEAR); BILIRUBIN,URINE NEGATIVE (NEGATIVE); COLOR,URINE LIGHT-YELLOW (YELLOW); GLUCOSE, URINE (UA) >=1000 mg/dL (NEGATIVE); KETONES,URINE 100 mg/dL (NEGATIVE); LEUKOCYTE ESTERASE ,URINE NEGATIVE Leu/uL (NEGATIVE); NITRATE,URINE NEGATIVE (NEGATIVE); OCCULT BLOOD,URINE SMALL (NEGATIVE); PH,URINE 5.5 (5.0-8.0); PROTEIN,URINE NEGATIVE (NEGATIVE); UROBILINOGEN,URINE 0.2 mg/dL (0.2-1.0)
[2023-11-07 00:43] LABS: MUCUS,URINE RARE LPF (None Seen); SQUAMOUS EPITHELIAL CELL,UR FEW /HPF (0-2)
[2023-11-07 01:28] LABS: AMPHET/METH SCREEN,URINE NEGATIVE (NEGATIVE); BARBITURATE SCREEN, URINE NEGATIVE (NEGATIVE); BENZODIAZEPINES SCREEN,URINE POSITIVE (NEGATIVE); CANNABINOID SCREEN,URINE POSITIVE (NEGATIVE); COCAINE SCREEN,URINE NEGATIVE (NEGATIVE); OPIATE SCREEN,URINE NEGATIVE (NEGATIVE); PHENCYCLIDINE SCREEN,URINE NEGATIVE (NEGATIVE)
[2023-11-07] MEDS: ONDANSETRON 4MG INJ IVP PRN ×2 (02:56→12:16)
[2023-11-07 05:06] LABS: BASOPHILS # (AUTO) 0.03 K/uL (0.00-0.20); BASOPHILS % (AUTO) 0.2 % (0.0-5.0); EOSINOPHILS # (AUTO) 0.02 K/uL (0.00-0.70); EOSINOPHILS % (AUTO) 0.2 % (0.0-8.0); HEMATOCRIT 46.7 % (36-48); IMMATURE GRANULOCYTE ABSOLUTE 0.05 K/uL (0-1); LYMPHOCYTES # (AUTO) 0.9 K/uL (1.0-4.8); LYMPHOCYTES % (AUTO) 6.8 % (21.0-51.0); MEAN CORPUSCULAR HEMOGLOBIN 29.9 pg (27.0-33.0); MEAN CORPUSCULAR HGB CONC 34.5 g/dL (32.0-36.0); MEAN CORPUSCULAR VOLUME 86.6 fL (79-99); MONOCYTES # (AUTO) 0.5 K/uL (0.1-1.0); NEUTROPHILS # (AUTO) 11.3 K/uL (1.8-7.7); NEUTROPHILS % (AUTO) 88.4 % (40.0-77.0); PLATELET COUNT (AUTO) 233 K/uL (130-400); RED BLOOD CELL COUNT(AUTO) 5.39 MIL/uL (4.00-5.50); RED CELL DISTRIBUTION WIDTH 12.9 % (11.0-15.5); WHITE BLOOD COUNT (AUTO) 12.8 K/uL (4.8-10.8)
[2023-11-07 05:28] LABS: WBC MORPHOLOGY CONSISTENT W/DIFF
[2023-11-07 05:34] LABS: ALBUMIN 3.7 g/dL (3.5-5.0); BILIRUBIN,TOTAL 0.7 mg/dL (0.2-1.0); CREATININE 0.6 mg/dL (0.5-1.5); MAGNESIUM 1.8 mg/dL (1.80-2.40); POTASSIUM 3.6 mmol/L (3.5-5.1); THYROID STIMULATING HORMONE 0.39 uIU/mL (0.36-3.74); TOTAL PROTEIN, SERUM 7.4 g/dL (6.0-8.3)
[2023-11-07] MEDS: INSULIN HUMULIN R 100 UNIT/ML 3ML SQ SCH ×4 (05:35→20:24)
[2023-11-07] MEDS: HYDRALAZINE 20MG/ML VIAL IV PRN (05:45)
[2023-11-07] MEDS: MAGNESIUM 2GM PREMIX 50ML 50 ML IV SCH (05:46)
[2023-11-07] MEDS: KCL 20 MEQ ERTAB PO PRN ×2 (05:46→05:47)
[2023-11-07] MEDS: METOPROLOL TARTRATE 25 MG TAB PO SCH ×2 (08:35→20:23)
[2023-11-07] MEDS: MULTIVITAMIN TABLET PO SCH (08:35)
[2023-11-07] MEDS: LOSARTAN 50 MG TABLET PO SCH (08:35)
[2023-11-07] MEDS: TICAGRELOR 90 MG TABLET PO SCH ×2 (08:35→20:23)
[2023-11-07] MEDS: ASPIRIN 81MG CHEW TAB PO SCH (08:36)
[2023-11-07] MEDS: BUSPIRONE HCL 5 MG TABLET PO SCH ×2 (08:36→20:23)
[2023-11-07 10:18] LABS: MAGNESIUM 2.1 mg/dL (1.80-2.40); POTASSIUM 3.8 mmol/L (3.5-5.1)
[2023-11-07] MEDS: THIAMINE HCL 100 MG/ML 2ML VIAL IVP SCH (20:22)
[2023-11-07] MEDS: ATORVASTATIN 40 MG TABLET PO SCH (20:23)
[2023-11-07] MEDS: INSULIN GLARGINE 100 UNITS/ML 10 ML VIAL SQ SCH (20:25)
[2023-11-08] VITALS (12 sets, daily range): BP systolic 85–121; BP diastolic 52–82; PULSE 65–103; RESP 16–20; O2SAT 97–99
[2023-11-08 03:51] LABS: MEAN CORPUSCULAR HEMOGLOBIN 30.2 pg (27.0-33.0); MEAN CORPUSCULAR HGB CONC 34.3 g/dL (32.0-36.0); MEAN CORPUSCULAR VOLUME 88.1 fL (79-99); RED BLOOD CELL COUNT(AUTO) 5.56 MIL/uL (4.00-5.50); RED CELL DISTRIBUTION WIDTH 12.9 % (11.0-15.5)
[2023-11-08 04:07] LABS: ALBUMIN 3.4 g/dL (3.5-5.0); CREATININE 0.6 mg/dL (0.5-1.5); MAGNESIUM 1.8 mg/dL (1.80-2.40); POTASSIUM 3.4 mmol/L (3.5-5.1)
[2023-11-08] MEDS: MAGNESIUM 2GM PREMIX 50ML 50 ML IV SCH (04:43)
[2023-11-08] MEDS: KCL 20 MEQ ERTAB PO PRN (04:43)
[2023-11-08] MEDS: INSULIN HUMULIN R 100 UNIT/ML 3ML SQ SCH ×4 (06:40→20:10)
[2023-11-08] MEDS ORDERED: KCL 20 MEQ ERTAB PO ONE (08:30)
[2023-11-08] MEDS: BUSPIRONE HCL 5 MG TABLET PO SCH ×2 (08:39→20:08)
[2023-11-08] MEDS: MULTIVITAMIN TABLET PO SCH (08:40)
[2023-11-08] MEDS: ASPIRIN 81MG CHEW TAB PO SCH (08:40)
[2023-11-08] MEDS: ISOSORBIDE MONO 30MG SR TAB PO SCH (08:40)
[2023-11-08] MEDS: TICAGRELOR 90 MG TABLET PO SCH ×2 (08:40→20:08)
[2023-11-08] MEDS: LOSARTAN 50 MG TABLET PO SCH (08:41)
[2023-11-08] MEDS: METOPROLOL TARTRATE 25 MG TAB PO SCH (08:41)
[2023-11-08] MEDS ORDERED: LACTULOSE 20 GM/30 ML UDCUP PO ONE (11:00)
[2023-11-08] MEDS ORDERED: METOPROLOL TARTRATE 25 MG TAB PO ONE (11:00)
[2023-11-08] MEDS: MIRTAZAPINE 15 MG TABLET PO SCH (20:08)
[2023-11-08] MEDS: THIAMINE HCL 100 MG/ML 2ML VIAL IVP SCH (20:08)
[2023-11-08] MEDS: ATORVASTATIN 40 MG TABLET PO SCH (20:08)
[2023-11-08] MEDS: INSULIN GLARGINE 100 UNITS/ML 10 ML VIAL SQ SCH (20:10)
[2023-11-08] MEDS ORDERED: METOPROLOL TARTRATE 25 MG TAB PO SCH (21:00)
[2023-11-08] MEDS ORDERED: 0.9% NACL 500ML IV.SOLN 500 ML IV SCH (23:00)
[2023-11-09] VITALS (12 sets, daily range): BP systolic 90–131; BP diastolic 52–72; PULSE 50–98; RESP 16–20; O2SAT 97–99
[2023-11-09] MEDS: INSULIN HUMULIN R 100 UNIT/ML 3ML SQ SCH ×4 (05:58→20:19)
[2023-11-09] MEDS: ASPIRIN 81MG CHEW TAB PO SCH (08:29)
[2023-11-09] MEDS: MULTIVITAMIN TABLET PO SCH (08:29)
[2023-11-09] MEDS: TICAGRELOR 90 MG TABLET PO SCH ×2 (08:30→20:17)
[2023-11-09] MEDS: BUSPIRONE HCL 5 MG TABLET PO SCH ×2 (08:30→20:17)
[2023-11-09] MEDS: LOSARTAN 50 MG TABLET PO SCH (08:30)
[2023-11-09] MEDS: ISOSORBIDE MONO 30MG SR TAB PO SCH (08:31)
[2023-11-09] MEDS ORDERED: METOPROLOL TARTRATE 25 MG TAB PO SCH (09:00)
[2023-11-09] MEDS: THIAMINE HCL 100 MG/ML 2ML VIAL IVP SCH (20:17)
[2023-11-09] MEDS: MIRTAZAPINE 15 MG TABLET PO SCH (20:17)
[2023-11-09] MEDS: ATORVASTATIN 40 MG TABLET PO SCH (20:17)
[2023-11-09] MEDS: INSULIN GLARGINE 100 UNITS/ML 10 ML VIAL SQ SCH (20:18)
[2023-11-10 00:10] VITALS: BP 104/76; PULSE 50; RESP 20
[2023-11-10 03:10] VITALS: BP 109/69; PULSE 84; RESP 18
[2023-11-10 05:07] LABS: HEMATOCRIT 42.2 % (36-48); MEAN CORPUSCULAR HEMOGLOBIN 30.1 pg (27.0-33.0); MEAN CORPUSCULAR HGB CONC 34.1 g/dL (32.0-36.0); MEAN CORPUSCULAR VOLUME 88.3 fL (79-99); RED BLOOD CELL COUNT(AUTO) 4.78 MIL/uL (4.00-5.50); RED CELL DISTRIBUTION WIDTH 12.8 % (11.0-15.5); WHITE BLOOD COUNT (AUTO) 7.2 K/uL (4.8-10.8)
[2023-11-10 05:23] LABS: ALBUMIN 2.8 g/dL (3.5-5.0); BILIRUBIN,TOTAL 0.7 mg/dL (0.2-1.0); CREATININE 0.6 mg/dL (0.5-1.5); MAGNESIUM 1.8 mg/dL (1.80-2.40); POTASSIUM 3.4 mmol/L (3.5-5.1); TOTAL PROTEIN, SERUM 6.4 g/dL (6.0-8.3)
[2023-11-10] MEDS: INSULIN HUMULIN R 100 UNIT/ML 3ML SQ SCH ×2 (05:47→12:02)
[2023-11-10] MEDS: KCL 20 MEQ ERTAB PO PRN (05:47)
[2023-11-10] MEDS: MAGNESIUM 2GM PREMIX 50ML 50 ML IV SCH (05:48)
[2023-11-10 07:00] VITALS: BP 107/72; PULSE 82; RESP 18
[2023-11-10 08:00] VITALS: O2SAT 98
[2023-11-10] MEDS: ASPIRIN 81MG CHEW TAB PO SCH (09:10)
[2023-11-10] MEDS: BUSPIRONE HCL 5 MG TABLET PO SCH (09:11)
[2023-11-10] MEDS: TICAGRELOR 90 MG TABLET PO SCH (09:11)
[2023-11-10] MEDS: MULTIVITAMIN TABLET PO SCH (09:12)
[2023-11-10] MEDS: ISOSORBIDE MONO 30MG SR TAB PO SCH (09:12)
[2023-11-10] MEDS: LOSARTAN 50 MG TABLET PO SCH (09:13)
[2023-11-10] MEDS ORDERED: KCL 20 MEQ ERTAB PO ONE (10:30)
[2023-11-10 11:00] VITALS: BP 98/68; PULSE 89; RESP 19
[2023-11-10] MEDS ORDERED: ATOR40TA69 PO (13:25)
[2023-11-10] MEDS ORDERED: ASPI-1005 PO (13:25)
[2023-11-10] MEDS ORDERED: Nitroglycerin 0.4MG Sl Tab SL (13:25)
[2023-11-10] MEDS ORDERED: TICA90TA PO (13:25)
[2023-11-10] MEDS ORDERED: METO-391 PO (13:26)
[2023-11-10] MEDS ORDERED: NITR0.4T50 SL (13:26)
[2023-11-10] MEDS ORDERED: FLU VACC QS2023-24(6MOS UP)/PF 60 MCG/0.5 ML IM ONE (14:30)
== END 2023-11-10 15:05 | disposition home or self-care (01) | DRG 322 ==
LOC: EDH 14:27 → 2CH 14:28 → 2AH 11-07 23:35
PROVIDERS: ADMIT Internal Medicine; ATTEND Internal Medicine
PROC: 4A023N7 Measurement of Cardiac Sampling and Pressure, Left Heart, Percutaneous Approach (ICD-10-PCS; principal; 2023-11-06)
PROC: 027034Z Dilation of Coronary Artery, One Artery with Drug-eluting Intraluminal Device, Percutaneous Approach (ICD-10-PCS; 2023-11-06)
PROC: B2111ZZ Fluoroscopy of Multiple Coronary Arteries using Low Osmolar Contrast (ICD-10-PCS; 2023-11-06)
PROC: 3E02340 Introduction of Influenza Vaccine into Muscle, Percutaneous Approach (ICD-10-PCS; 2023-11-10)
DX: I21.09 ST elevation (STEMI) myocardial infarction involving other coronary artery of anterior wall (principal); R45.851 Suicidal ideations; Z59.02 Unsheltered homelessness; I25.2 Old myocardial infarction; E11.51 Type 2 diabetes mellitus with diabetic peripheral angiopathy without gangrene; E66.09 Other obesity due to excess calories; E78.00 Pure hypercholesterolemia, unspecified; F31.9 Bipolar disorder, unspecified; F43.10 Post-traumatic stress disorder, unspecified; I10 Essential (primary) hypertension; I25.5 Ischemic cardiomyopathy; Z79.02 Long term (current) use of antithrombotics/antiplatelets; Z79.82 Long term (current) use of aspirin; Z98.61 Coronary angioplasty status; Z79.899 Other long term (current) drug therapy; Z82.49 Family history of ischemic heart disease and other diseases of the circulatory system; Z91.199 Patient's noncompliance with other medical treatment and regimen due to unspecified reason; Z68.32 Body mass index [BMI] 32.0-32.9, adult; Z23 Encounter for immunization
CPT/HCPCS: 36415; 70450; 71045; 80053; 80061; 80305; 81001; 82140; 82306; 82948; 83036; 83735; 84132; 84443; 84484; 85025; 85027; 85347; 93005; 93306; 93356; 93458; 99156; 99157; C1760; C1887; C1894; C9606; G0378; J0360; J0461; J1265; J1644; J1815; J2060; J2250; J2270; J2405; J3010; J3411; J3475; J3490; Q2035; Q9967; C1725; C1769; C1874; Q2038; Q9965

== ENCOUNTER 2023-11-25 23:39 | Emergency (ER) | payer OTHER ==
[~2023-11-25] VITALS: Ht 167.6 cm; Wt 90.7 kg
[~2023-11-25 23:39] MED LIST changes: -AMOX1TAB16 PO; +ASPI-1005 PO; -ATOR10 PO; +ATOR40TA69 PO; -CLOP-31 PO; +METO-391 PO; -METO25TA6 PO; +NITR0.4T50 SL; +Nitroglycerin 0.4MG Sl Tab SL; -OLME-11 PO; -SULF1TAB42 PO; +TICA90TA PO
[2023-11-26 00:04] LABS: BASOPHILS # (AUTO) 0.04 K/uL (0.00-0.20); BASOPHILS % (AUTO) 0.6 % (0.0-5.0); EOSINOPHILS # (AUTO) 0.19 K/uL (0.00-0.70); EOSINOPHILS % (AUTO) 2.8 % (0.0-8.0); HEMATOCRIT 42.4 % (36-48); IMMATURE GRANULOCYTE ABSOLUTE 0.03 K/uL (0-1); LYMPHOCYTES # (AUTO) 1.9 K/uL (1.0-4.8); LYMPHOCYTES % (AUTO) 27.1 % (21.0-51.0); MEAN CORPUSCULAR HEMOGLOBIN 29.9 pg (27.0-33.0); MEAN CORPUSCULAR VOLUME 88.1 fL (79-99); MONOCYTES # (AUTO) 0.6 K/uL (0.1-1.0); NEUTROPHILS # (AUTO) 4.2 K/uL (1.8-7.7); NEUTROPHILS % (AUTO) 61.1 % (40.0-77.0); PLATELET COUNT (AUTO) 212 K/uL (130-400); RED BLOOD CELL COUNT(AUTO) 4.81 MIL/uL (4.00-5.50); RED CELL DISTRIBUTION WIDTH 12.5 % (11.0-15.5); WHITE BLOOD COUNT (AUTO) 6.9 K/uL (4.8-10.8)
[2023-11-26 00:15] LABS: CREATININE 0.8 mg/dL (0.5-1.5); POTASSIUM 4.1 mmol/L (3.5-5.1)
[2023-11-26 00:16] LABS: PROTHROMBIN TIME 11.6 SEC (9.6-11.6)
[2023-11-26 00:18] LABS: PARTIAL THROMBOPLASTIN TIME 28.2 SEC (26.3-35.5)
[2023-11-26 00:19] LABS: ALBUMIN 3.8 g/dL (3.5-5.0); BILIRUBIN,TOTAL 0.6 mg/dL (0.2-1.0); MAGNESIUM 1.9 mg/dL (1.80-2.40); TOTAL PROTEIN, SERUM 7.5 g/dL (6.0-8.3)
[2023-11-26 00:21] LABS: B-TYPE NATRIURETIC PEPTIDE 153 pg/mL (0-100)
[2023-11-26 01:56] VITALS: BP 132/69; PULSE 62; RESP 18; O2SAT 96
== END 2023-11-26 02:01 | disposition home or self-care (01) ==
LOC: EDH 23:39
DX: R07.89 Other chest pain (principal); I10 Essential (primary) hypertension; E78.00 Pure hypercholesterolemia, unspecified; E11.9 Type 2 diabetes mellitus without complications; Z79.4 Long term (current) use of insulin; Z79.899 Other long term (current) drug therapy; I25.10 Atherosclerotic heart disease of native coronary artery without angina pectoris
CPT/HCPCS: 36415; 71045; 80053; 83735; 83880; 84484; 85025; 85610; 85730; 93005

== ENCOUNTER 2025-04-30 21:20 | Emergency (ER) | payer MEDICARE ==
[~2025-04-30] VITALS: Ht 167.6 cm; Wt 90.7 kg
--- NOTE | 2025-04-30 21:38 | NUR ---
LEFT LOWER EXTREMITY COLOR WNL, NO PULSES FOUND WITH DOPPLER
--- NOTE | 2025-04-30 21:38 | NUR ---
PT ORIENTED TO ROOM, CALL LIGHT WITHIN REACH
[2025-04-30 22:06] LABS: BASOPHILS # (AUTO) 0.02 K/uL (0.00-0.20); BASOPHILS % (AUTO) 0.3 % (0.0-5.0); EOSINOPHILS # (AUTO) 0.13 K/uL (0.00-0.70); EOSINOPHILS % (AUTO) 2.1 % (0.0-8.0); HEMATOCRIT 41.6 % (36-48); IMMATURE GRANULOCYTE ABSOLUTE 0.03 K/uL (0-1); LYMPHOCYTES # (AUTO) 2.1 K/uL (1.0-4.8); LYMPHOCYTES % (AUTO) 33.4 % (21.0-51.0); MEAN CORPUSCULAR HEMOGLOBIN 29.5 pg (27.0-33.0); MEAN CORPUSCULAR HGB CONC 33.7 g/dL (32.0-36.0); MEAN CORPUSCULAR VOLUME 87.6 fL (79-99); MONOCYTES # (AUTO) 0.4 K/uL (0.1-1.0); NEUTROPHILS # (AUTO) 3.6 K/uL (1.8-7.7); NEUTROPHILS % (AUTO) 56.7 % (40.0-77.0); PLATELET COUNT (AUTO) 189 K/uL (130-400); RED BLOOD CELL COUNT(AUTO) 4.75 MIL/uL (4.00-5.50); RED CELL DISTRIBUTION WIDTH 12.2 % (11.0-15.5); WHITE BLOOD COUNT (AUTO) 6.3 K/uL (4.8-10.8)
[2025-04-30 22:13] LABS: CREATININE 0.7 mg/dL (0.5-1.0); POTASSIUM 3.5 mmol/L (3.5-5.1)
[2025-04-30 22:26] LABS: HEMOGLOBIN A1C 12.3 % (4.0-6.0)
--- NOTE | 2025-04-30 22:32 | HMCIMG ---
US VENOUS DOPPLER UNILATERAL HISTORY: Left leg pain COMPARISON: None TECHNIQUE: Left lower extremity venous Doppler ultrasound study was performed. FINDINGS: The left common femoral, femoral, popliteal, and posterior tibial veins are visualized. Normal flow with augmentation and compressibilities are demonstrated. Left greater saphenous vein is patent. IMPRESSION: 1. No evidence of deep venous thrombosis is seen.
[2025-04-30] MEDS: HYDROcodone/APAP 5/325 1 TAB TABLET PO ONE (22:51)
[2025-04-30] MEDS: ketOROlac 15MG/ML VIAL (15MG/ML) IV ONE (22:52)
--- NOTE | 2025-04-30 23:02 | NUR ---
UP TO RESTROOM FOR URINE, PLACED IN WHEELCHAIR
[2025-04-30] MEDS ORDERED: GABA-529 PO (23:12)
[2025-04-30] MEDS ORDERED: MELO-108 PO (23:12)
--- NOTE | 2025-04-30 23:14 | ERN ---
General Chief Complaint: Lower Extremity Pain/Injury Stated Complaint: LLE PAIN AND NUMBNESS X 1 WEEK Time Seen by MD: 21:22 History of Present Illness Initial Comments 54-year-old female brought in by EMS for leg pain. She reports that her bilateral legs has been feeling numb and hurting more than usual. She does have a history of neuropathy. She reports she has a history of DVT and was concerned there may be a vascular change. There was no obvious abnormalities to the legs. No back pain. Allergies: Coded Allergies: No Known Allergies (Unverified Allergy, Unknown, 05/15/18) Home Meds Active Scripts Nitroglycerin (Nitroglycerin) 0.4 Mg Tab.subl, 0.4 MG SL [id number] PRN for chest pain, #30 TAB.SL 2 Refills Prov:ABDI OLIVA MD 11/10/23 Metoprolol Succinate (Metoprolol Succinate) 50 Mg Tab.er.24h, 50 MG PO DAILY for 30 Days, #30 TAB 2 Refills Prov:ABDI OLIVA MD 11/10/23 Ticagrelor (Brilinta) 90 Mg Tablet, 90 MG PO BID, #30 TAB 2 Refills Prov:ABDI OLIVA MD 11/10/23 [Nitroglycerin 0.4MG Sl Tab] 0.4 MG TAB.SUBL No Conflict Check, 0.4 MG SL AD PRN for CHEST PAIN, #30 2 Refills Prov:ABDI OLIVA MD 11/10/23 Atorvastatin Calcium (LIPITOR) 40 Mg Tablet, 40 MG PO HS, #30 TAB 2 Refills Prov:ABDI OLIVA MD 11/10/23 Aspirin (ASPIRIN 81MG CHEW TAB) 81 Mg Tab.chew, 81 MG PO DAILY, #30 TAB.CHEW 2 Refills Prov:ABDI OLIVA MD 11/10/23 Reported Medications [vitamin d] No Conflict Check, 1.25 MG PO weekly 07/18/22 Insulin Lispro (Humalog) 100 Unit/1 Ml Vial, 12 UNITS SQ TIDAC, VIAL 07/18/22 Insulin Glargine,Hum.rec.anlog (Lantus) 100 Units/Ml Inj, 50 UNITS SQ AM, ML 10/16/21 Gabapentin (Gabapentin) 100 Mg Capsule, 300 MG PO AD, CAP 10/16/21 Metformin HCl (Metformin HCl) 1,000 Mg Tablet, 1000 MG PO BID, TAB DOES NOT TAKE THE MEDICATION BECUASE TO LARGE AND UNABLE TO SWALLOW. 10/16/21 Buspirone HCl (Buspirone HCl) 10 Mg Tablet, 10 MG PO BID, TAB 10/16/21 Past Medical History Past Medical History: Diabetes-Type II, High Cholesterol, Hypertension, [place] Medical History Other: PVD, DVT BILAT LE, CARDIAC STENTS Past Surgical History: Other Surgical History Other: HEART CATH WITH STENTS Family History Family History: Negative Social History Social History: Negative, Lives with family ROS Dictation CONSTITUTIONAL: No chills, no fever, no weakness, no diaphoresis, no malaise. HEAD/FACE: No signs of trauma. EENT: No eye pain, no blurred vision, no tearing, no double vision, no ear pain, no ear discharge, no nose pain, no nasal congestion, no throat pain, no throat swelling, no mouth pain. RESPIRATORY: No cough, no orthopnea, no SOB, no stridor, no wheezing. CARDIOVASCULAR: No chest pain, no edema, no palpitations, no syncope. GASTROINTESTINAL/ABDOMINAL: No abdominal pain, no constipation, no diarrhea, no nausea, no vomiting. GENITOURINARY: No abnormal discharge, no dysuria, no frequent urination, no hematuria. No complaints of pain in the genitals. MUSCULOSKELETAL bilateral feet.. INTEGUMENTARY: No change in color, no change in hair/nails, no dryness, no lesion, no lumps, no rash. NEUROLOGICAL/PSYCH: No anxiety, not depressed, no emotional problem, no headache, no numbness, no pre-existing deficit, no history of seizures, no tremors, no weakness. HEMATOLOGIC/LYMPHATIC: Not anemic, no history of blood clots, no apparent bleeding, no bruising, glands not swollen. All Systems Negative, Except as Noted. Physical Exam Physical Exam Dictation VITAL SIGNS: Reviewed. GENERAL APPEARANCE: Alert, oriented x3, no acute distress, obese. HEAD AND FACE: Non-traumatic. EYES: PERRL, pink conjunctivas, eyelid no trauma, anterior chamber clear. EARS: Pinnas intact and no signs of trauma or erythema. Ear canals clear and no discharge. TMs no erythema. NOSE: No discharge, no bleeding. OROPHARYNX: Mouth normal, teeth no caries, tongue pink. Pharynx clear, no erythema. Tonsils no exudates, no abscesses noted. Mucous membrane moist. NECK: Supple, non-tender, no thyromegaly, no masses, no JVD, no bruits. BREAST: Deferred. CHEST: No tenderness, no crepitus, no paradoxical movement, no retractions. LUNGS: Clear, well-ventilated, symmetric, no rales, no wheezing, no rhonchi, no stridor, good breath sounds bilaterally. HEART: Regular rate, regular rhythm, no murmur, no gallops. VASCULAR: No peripheral edema. ABDOMEN: Soft, positive bowel sounds, nondistended, no guarding, nontender, no rebound, no masses no hepatomegaly, no splenomegaly, no Flaherty's sign, no hernias. RECTAL: Deferred. GENITAL: Deferred. NEUROLOGICAL: Normal speech, gross motor function intact, gross sensory function intact. MUSCULOSKELETAL: Neck nontender, full range of motion, back nontender, full range of motion. EXTREMITIES: Nontender, full range of motion. SKIN: Color pink, dry, no turgor, no rash, no lacerations, no abrasions, no contusions. LYMPHATICS: Deferred. Results Laboratory and Microbiology Lab and Micro Result Laboratory Tests Test 04/30/25 21:43 White Blood Count 6.3 K/uL (4.8-10.8) Red Blood Count 4.75 MIL/uL (4.00-5.50) Hemoglobin 14.0 g/dL (12.0-16.0) Hematocrit 41.6 % (36-48) Mean Corpuscular Volume 87.6 fL (79-99) Mean Corpuscular Hemoglobin 29.5 pg (27.0-33.0) Mean Corpuscular Hemoglobin Concent 33.7 g/dL (32.0-36.0) Red Cell Distribution Width 12.2 % (11.0-15.5) Platelet Count 189 K/uL (130-400) Mean Platelet Volume 11.0 fL (7.5-10.5) H Immature Granulocyte % (Auto) 0.5 % (0-1) Neutrophils (%) (Auto) 56.7 % (40.0-77.0) Lymphocytes (%) (Auto) 33.4 % (21.0-51.0) Monocytes (%) (Auto) 7.0 % (3.0-13.0) Eosinophils (%) (Auto) 2.1 % (0.0-8.0) Basophils (%) (Auto) 0.3 % (0.0-5.0) Neutrophils # (Auto) 3.6 K/uL (1.8-7.7) Lymphocytes # (Auto) 2.1 K/uL (1.0-4.8) Monocytes # (Auto) 0.4 K/uL (0.1-1.0) Eosinophils # (Auto) 0.13 K/uL (0.00-0.70) Basophils # (Auto) 0.02 K/uL (0.00-0.20) Absolute Immature Granulocyte (auto 0.03 K/uL (0-1) Nucleated Red Blood Cells 0.0 % (0.0-0.19) Sodium Level 143 mmol/L (136-145) Potassium Level 3.5 mmol/L (3.5-5.1) Chloride Level 104 mmol/L (101-111) Carbon Dioxide Level 32 mmol/L (21-32) Blood Urea Nitrogen 16 mg/dL (7-18) Creatinine 0.7 mg/dL (0.5-1.0) Glomerular Filtration Rate Calc 101 mL/min (>90) Random Glucose 208 mg/dL (70-105) H Hemoglobin A1c 12.3 % (4.0-6.0) H Estimated Average Glucose (eAG) 306 mg/dL (70-126) H Total Calcium 9.3 mg/dL (8.5-10.1) Total Creatine Kinase 44 U/L (21-232) Troponin I High Sensitivity 18.1 ng/L (4-50) MDM CC: Bilateral feet pain more on left than the right Historian: Patient Comorbidities: Uncontrolled diabetes, hypertension, peripheral vascular disease Limitations by social determinants of health: None Differential diagnosis: Worsening neuropathy, PAD, DVT, injury, other. Vital signs: Stable, remained stable in the ER Labs show no leukocytosis or anemia. Chemistry shows stable electrolytes, glucose 208. A1c 12.3 likely the cause of the symptoms. CK is normal. DVT studies negative Symptoms most consistent with worsening neuropathy, consistent with uncontrolled diabetes. Treatment in ED include [place], Toradol No life threats or life threats at this time. Can follow up as an outpatient. We will recommend strict glucose monitoring and treatment, we will also get a prescription for gabapentin and meloxicam. ED Course Orders Procedure Category Date Status Time Cardiac Panel LAB 04/30/25 Complete 21:57 Cbc With Differential LAB 04/30/25 Complete 21:57 Basic Metabolic Panel LAB 04/30/25 Complete 21:57 Urinalysis Profile LAB 04/30/25 Logged 21:57 Hemoglobin A1c LAB 04/30/25 Complete 21:57 Us Venous Doppler US 04/30/25 Resulted Unilateral 21:57 Ketorolac PHA 04/30/25 Complete Tromethamine 15mg/Ml 22:00 Hydrocodone/Apap PHA 04/30/25 Complete 5/325 ([place] 5/325mg) 22:00 Current Medications Medications (Trade) Dose Ordered Sig/Elizabeth Route PRN Reason Start Time Stop Time Status Last Admin Dose Admin Acetaminophen/ Hydrocodone Bitart (NORco 5/325MG) 1 tab ONCE ONCE PO 04/30/25 22:00 04/30/25 22:01 DC 04/30/25 22:51 Ketorolac Tromethamine (toRADol) 15 mg ONCE ONCE IV 04/30/25 22:00 04/30/25 22:01 DC 04/30/25 22:52 Vital Signs Date Time Temp Pulse Resp B/P (MAP) Pulse Ox O2 Delivery O2 Flow Rate FiO2 04/30/25 21:22 97.9 81 18 156/88 99 Room Air 0 DX & DISP Disposition: Discharge Departure Impression: Primary Impression: Peripheral neuropathy Additional Impression: Diabetes mellitus Condition: Stable Scripts Meloxicam (Meloxicam) 15 Mg Tablet 15 MG PO DAILY PRN for PAIN for 10 Days, #10 TAB Prov: ADELAIDA DAVIES DO 04/30/25 Gabapentin (Gabapentin) 100 Mg Capsule 1 CAP PO TID for 30 Days, #90 CAP 0 Refills Prov: ADELAIDA DAVIES DO 04/30/25 Additional Instructions: Your symptoms are consistent with peripheral neuropathy due to uncontrolled diabetes. Your lab work shows a hemoglobin A1c of 12.3, which is elevated consistent with diabetes. Otherwise your lab work is unremarkable. The ultrasound does not show any vascular abnormalities. I have prescribed gabapentin. Take this 3 times per day for neuropathy pain. I have prescribed meloxicam, which you can take once a day for pain. As we discussed, it is very important to control your blood sugars. I recommend using her insulin as prescribed. Please follow up with your primary doctor. You would also benefit from a retirement village manager. I have urinary referral to Dr. Adams. Call for an appointment. Return to the emergency department as needed. Referrals: MARLI PRUETT DO (PCP) SAMSON ADAMS DPM, RYAN E DO April 30, 2025 23:13
[2025-04-30 23:18] VITALS: BP 124/70; PULSE 62; RESP 16; TEMP 97.8; O2SAT 98
[2025-04-30 23:27] LABS: ADD UA MICROSCOPIC YES; APPEARANCE,URINE CLEAR (CLEAR); BILIRUBIN,URINE NEGATIVE (NEGATIVE); COLOR,URINE YELLOW (YELLOW); GLUCOSE, URINE (UA) >=1000 mg/dL (NEGATIVE); KETONES,URINE NEGATIVE (NEGATIVE); LEUKOCYTE ESTERASE ,URINE NEGATIVE Leu/uL (NEGATIVE); NITRATE,URINE NEGATIVE (NEGATIVE); OCCULT BLOOD,URINE SMALL (NEGATIVE); PH,URINE 5.5 (5.0-8.0); PROTEIN,URINE NEGATIVE (NEGATIVE)
[2025-04-30 23:29] LABS: MUCUS,URINE RARE LPF (None Seen); SQUAMOUS EPITHELIAL CELL,UR MANY /HPF (0-2)
== END 2025-04-30 23:29 | disposition home or self-care (01) ==
LOC: EDH 21:20
DX: E11.42 Type 2 diabetes mellitus with diabetic polyneuropathy (principal); E78.00 Pure hypercholesterolemia, unspecified; I10 Essential (primary) hypertension; Z79.02 Long term (current) use of antithrombotics/antiplatelets; Z79.4 Long term (current) use of insulin; Z79.82 Long term (current) use of aspirin; Z79.84 Long term (current) use of oral hypoglycemic drugs; Z79.899 Other long term (current) drug therapy; Z95.5 Presence of coronary angioplasty implant and graft; Z98.890 Other specified postprocedural states
CPT/HCPCS: 99285; 96374; 93971; 83036; 82550; 84484; 80048; 85025; 81001; 36415; J1885

== ENCOUNTER 2025-06-03 14:34 | Emergency (ER) | payer MEDICARE ==
[~2025-06-03] VITALS: Ht 167.6 cm; Wt 90.3 kg
[~2025-06-03 14:34] MED LIST changes: -ATOR40TA69 PO; -BUSP10TA3 PO; -INSLAN SQ; -METF-446 PO; -METO-391 PO; +METO-408 PO; -NITR0.4T50 SL; -Nitroglycerin 0.4MG Sl Tab SL; +OLME-29 PO; +PARO-37 PO; +ROSUVASTATIN; -vitamin d PO
--- NOTE | 2025-06-03 15:50 | HMCIMG ---
EXAM: CR left foot, 3 View. CLINICAL HISTORY: PAIN COMPARISON: None provided. FINDINGS: There is concern for possible nondisplaced fracture at the medial aspect of the distal fifth proximal phalanx. If clinically warranted CT imaging of the midfoot/forefoot is recommended. Bones are otherwise within normal limits, and joint spaces remain preserved. Soft tissue swelling at the dorsal aspect of the midfoot. Large plantar calcaneal spur. Small enthesophyte at the distal Achilles tendon insertion. IMPRESSION: 1. Possible nondisplaced fracture of the distal fifth proximal phalanx medially with associated dorsal midfoot soft tissue swelling /[place]
--- NOTE | 2025-06-03 15:55 | HMCIMG ---
EXAM: CR left ankle, 1 View. CLINICAL HISTORY: PAIN COMPARISON: None provided. FINDINGS: BONES: No fracture in the left ankle. JOINTS: The joint spaces appear within normal limits. No dislocation. No radiographic evidence of a joint effusion. SOFT TISSUES: Soft tissue swelling. IMPRESSION: 1. No fracture or dislocation in the left ankle. 2. Soft tissue swelling. /[place]
--- NOTE | 2025-06-03 16:14 | ERN ---
General Chief Complaint: LOWER EXTREMITY EDEMA Stated Complaint: LEFT LEG SWELLING POSSIBLE DVT Time Seen by MD: 14:39 Source: patient History of Present Illness Initial Comments IN HIS IS A 54-YEAR-OLD FEMALE COMING IN TO BE EVALUATED FOR LEFT LOWER LEG SWELLING. PER PATIENT SHE WAS SENT BY HER DRILLER BRAKE LINING TO GET AN ULTRASOUND PERFORMED TO RULE OUT A DVT. Allergies: Coded Allergies: No Known Allergies (Unverified Allergy, Unknown, 05/15/18) Home Meds Active Scripts Paroxetine HCl (Paroxetine HCl) 20 Mg Tablet, 1 TAB PO DAILY for 30 Days, #30 TAB 0 Refills Prov:KAYLEE SPANN Blayne 05/17/25 Aspirin (ASPIRIN 81MG CHEW TAB) 81 Mg Tab.chew, 1 TAB PO DAILY for 30 Days, #30 TAB 0 Refills Prov:KAYLEE SPANN Blayne 05/17/25 Gabapentin (Gabapentin) 100 Mg Capsule, 1 CAP PO TID for 30 Days, #90 CAP 0 Refi lls Prov:KAYLEE SPANN Blayne 05/17/25 Ticagrelor (Brilinta) 90 Mg Tablet, 90 MG PO BID, #30 TAB 2 Refills Prov:ABDI OLIVA MD 11/10/23 Reported Medications Olmesartan/Hydrochlorothiazide (Olmesartan-Hctz 20-12.5 mg Tab) 20 Mg-12.5 Mg Tablet, 1 TAB PO DAILY for 30 Days, #30 TAB 0 Refills 05/11/25 Metoprolol Succinate (Metoprolol Succinate) 25 Mg Tab.er.24h, 1 TAB PO DAILY for 30 Days, #30 TAB 0 Refills 05/11/25 [Rosuvastatin] No Conflict Check, 20 MG DAILY for CHOLESTEROL 05/11/25 Insulin Lispro (Humalog) 100 Unit/1 Ml Vial, 12 UNITS SQ TIDAC, VIAL 07/18/22 Past Medical History Past Medical History: Diabetes-Type II, High Cholesterol, Hypertension, [place] Medical History Other: PVD, DVT BILAT LE, CARDIAC STENTS Past Surgical History: Other Surgical History Other: HEART CATH WITH STENTS Family History Family History: Negative Social History Social History: Negative, Lives with family ROS Dictation CONSTITUTIONAL: NO CHILLS, NO FEVER, NO WEAKNESS, NO DIAPHORESIS, NO MALAISE. HEAD/FACE: NO SIGNS OF TRAUMA. EENT: NO EYE PAIN, NO BLURRED VISION, NO TEARING, NO DOUBLE VISION, NO EAR PAIN, NO EAR DISCHARGE, NO NOSE PAIN, NO NASAL CONGESTION, NO THROAT PAIN, NO THROAT SWELLING, NO MOUTH PAIN. RESPIRATORY: NO COUGH, NO ORTHOPNEA, NO SOB, NO STRIDOR, NO WHEEZING. CARDIOVASCULAR: NO CHEST PAIN, NO EDEMA, NO PALPITATIONS, NO SYNCOPE. GASTROINTESTINAL/ABDOMINAL: NO ABDOMINAL PAIN, NO CONSTIPATION, NO DIARRHEA, NO NAUSEA, NO VOMITING. GENITOURINARY: NO ABNORMAL DISCHARGE, NO DYSURIA, NO FREQUENT URINATION, NO HEMATURIA. NO COMPLAINTS OF PAIN IN THE GENITALS. MUSCULOSKELETAL: NO BACK PAIN, NO GOUT, NO JOINT PAIN, NO JOINT SWELLING, NO MUSCLE PAIN, NO MUSCLE STIFFNESS, NO NECK PAIN. INTEGUMENTARY: NO CHANGE IN COLOR, NO CHANGE IN HAIR/NAILS, NO DRYNESS, NO LESION, NO LUMPS, NO RASH. NEUROLOGICAL/PSYCH: NO ANXIETY, NOT DEPRESSED, NO EMOTIONAL PROBLEM, NO HEADACHE, NO NUMBNESS, NO PRE-EXISTING DEFICIT, NO HISTORY OF SEIZURES, NO TREMORS, NO WEAKNESS. HEMATOLOGIC/LYMPHATIC: NOT ANEMIC, NO HISTORY OF BLOOD CLOTS, NO APPARENT BLEEDING, NO BRUISING, GLANDS NOT SWOLLEN. ALL SYSTEMS NEGATIVE, EXCEPT NOTED. Results EKG/XRAY/US/CT/MRI X-RAY Comment [place] [id number] [id number] IMAGING REPORT Signed PATIENT: OMAR FLOYD MR#: [id number] : 1970 SEX: F AGE: 54 LOCATION: [facility] ORDER 1514 STATUS: [facility] REPORT#: [id number] SERVICE 1513 REASON: PAIN ORDERING PHYSICIAN: MIGUEL ALATORRE MD PROCEDURE: FT 3VW LT - FOOT COMP 3+VWS LT EXAM: CR left foot, 3 View. CLINICAL HISTORY: PAIN COMPARISON: None provided. FINDINGS: There is concern for possible nondisplaced fracture at the medial aspect of the distal fifth proximal phalanx. If clinically warranted CT imaging of the midfoot/forefoot is recommended. Bones are otherwise within normal limits, and joint spaces remain preserved. Soft tissue swelling at the dorsal aspect of the midfoot. Large plantar calcaneal spur. Small enthesophyte at the distal Achilles tendon insertion. IMPRESSION: 1. Possible nondisplaced fracture of the distal fifth proximal phalanx medially with associated dorsal midfoot soft tissue swelling /[place] DICTATED BY: ASHU WELDON Jr., MD DATE: 06/03/251648 ELECTRONICALLY SIGNED BY: ASHU WELDON Jr., MD DATE: 06/03/251648 [place] [address] [place] [id number] IMAGING REPORT Signed PATIENT: OMAR FLOYD MR#: [id number] : 1970 SEX: F AGE: 54 LOCATION: [facility] ORDER 13 STATUS: [facility] REPORT#: [id number] SERVICE 12 REASON: PAIN ORDERING PHYSICIAN: MIGUEL ALATORRE MD PROCEDURE: [id number] - ANKLE 2VWS LT EXAM: CR left ankle, 1 View. CLINICAL HISTORY: PAIN COMPARISON: None provided. FINDINGS: BONES: No fracture in the left ankle. JOINTS: The joint spaces appear within normal limits. No dislocation. No radiographic evidence of a joint effusion. SOFT TISSUES: Soft tissue swelling. IMPRESSION: 1. No fracture or dislocation in the left ankle. 2. Soft tissue swelling. /[place] DICTATED BY: AZUCENA BEY MD DATE: 06/03/251653 ELECTRONICALLY SIGNED BY: AZUCENA BEY MD DATE: 06/03/251653 Ultrasound Comment ULTRASOUND LOWER EXTREMITY-NAD MDM MDM: DIFFERENTIAL DIAGNOSIS: LEFT FOOT SWELLING, METATARSAL FRACTURE, DVT, RATIONALE: TESTS CONSIDERED AND ORDERED SECONDARY TO SHARED DECISION MAKING INCLUDE: PREVIOUS OUTSIDE RECORDS REVIEWED: OLD ER VISITS. RISK OF COMPLICATION AND/OR MORBIDITY OR MORTALITY OF PATIENT MANAGEMENT: NONE MEDICATIONS-PER MEDICATION RECONCILIATION NEED FOR HOSPITALIZATION: PATIENT DOES NOT MEET CRITERIA FOR HOSPITALIZATION. PATIENT IS A 54-YEAR-OLD FEMALE COMING IN COMPLAINING OF LOWER EXTREMITY SWELLING. PATIENT WAS SENT BY PCP FOR FURTHER EVALUATION. PER PATIENT HER PCP DRILLER BRAKE LINING WHEN IT PATIENT TO HAVE AN ULTRASOUND PERFORMED TO RULE OUT A DVT. ULTRASOUND WAS NEGATIVE BUT X-RAY DISCLOSED distal fifth proximal phalanx FRACTURE. PATIENT WILL BE DISCHARGED WITH ORTHO SHOE. I DID ADVISED HER APPROPRIATE FOLLOW UP WITH PCP AND/OR PARKING ENFORCEMENT MANAGER FOR ONGOING MANAGEMENT. ED Course Orders Procedure Category Date Status Time Foot Comp 3+Vws Lt RAD 06/03/25 Resulted 15:13 Ankle 2vws Lt RAD 06/03/25 Resulted 15:13 Us Venous Doppler US 06/03/25 Taken Unilateral 15:13 *Nursing CPOE 06/03/25 Verified Communication: 17:05 Vital Signs Date Time Temp Pulse Resp B/P (MAP) Pulse Ox O2 Delivery O2 Flow Rate FiO2 06/03/25 15:48 98.2 90 20 104/62 98 Room Air* 0 21 06/03/25 14:35 98.4 92 20 103/63 99 0 DX & DISP Disposition: Discharge Departure Impression: Primary Impression: Phalanx fracture, foot Condition: Stable Scripts Acetaminophen (Tylenol) 500 Mg Tab 1 TAB PO Q6HPRN PRN for pain or fever for 5 Days, #30 TAB 0 Refills Prov: MIGUEL ALATORRE MD 06/03/25 Additional Instructions: FOLLOW-UP WITH PRIMARY CARE PROVIDER IN 1 TO 2 DAYS. TAKE MEDICATIONS DIRECTED HERE IN THE EMERGENCY ROOM. OKAY TO CONTINUE HOME MEDICATIONS UNLESS OTHERWISE DISCUSSED DURING YOUR VISIT IN THE EMERGENCY ROOM TODAY. RETURN TO YOUR NEAREST EMERGENCY ROOM IF SYMPTOMS WORSEN OR IF THERE IS NO IMPROVEMENT. CALL 911 IF YOU NEED IMMEDIATE ASSISTANCE. TAKE TYLENOL [id number] NEEDED AND IF NO CONTRAINDICATIONS ARE PRESENT. INCREASE ORAL HYDRATION. A WOUND CULTURE OR URINE CULTURE WAS ORDERED HERE IN THE EMERGENCY ROOM DEPARTMENT PLEASE FOLLOW-UP WITH PRIMARY CARE PROVIDER AND ADVISE THEM TO GET REPORTS FROM OUR FACILITY. IF YOU HAD ANY SHERIN WRAP/SPLINTS THAT WERE APPLIED HERE, PLEASE DO NOT REMOVE THEM UNTIL YOU SEE YOUR PRIMARY CARE OR SPECIALTY. REFERRALS: Referrals: MARLI PRUETT DO (PCP) TRACIE MOULTON DO Time of Disposition: 17:06 MIGUEL ALATORRE MD Jun 03, 2025 16:14
--- NOTE | 2025-06-03 17:06 | HMCIMG ---
EXAM: US for Deep Venous Thrombosis, left Lower Extremity. CLINICAL HISTORY: Leg Pain and Swelling TECHNIQUE: Real-time ultrasound scan of the veins of the left lower extremity with color Doppler flow, spectral waveform analysis and compression. COMPARISON: Study dated on 04/30 FINDINGS: DEEP VEINS: The common femoral, superficial femoral, and popliteal veins are echolucent and compressible. There is normal color Doppler flow throughout. The visualized calf veins appear patent. SOFT TISSUES: No popliteal fossa cyst or other abnormalities. IMPRESSION: 1. No deep venous thrombosis in the left lower extremity. /[place]
[2025-06-03] MEDS ORDERED: ACET-66 PO (17:07)
[2025-06-03 17:16] VITALS: BP 104/62; PULSE 85; RESP 20; TEMP 98.3; O2SAT 98
== END 2025-06-03 17:27 | disposition home or self-care (01) ==
LOC: EDH 14:34
DX: S92.512A Displaced fracture of proximal phalanx of left lesser toe(s), initial encounter for closed fracture (principal); E11.51 Type 2 diabetes mellitus with diabetic peripheral angiopathy without gangrene; E78.00 Pure hypercholesterolemia, unspecified; I10 Essential (primary) hypertension; M79.662 Pain in left lower leg; Z79.02 Long term (current) use of antithrombotics/antiplatelets; Z79.4 Long term (current) use of insulin; Z79.82 Long term (current) use of aspirin; Z79.899 Other long term (current) drug therapy; Z86.718 Personal history of other venous thrombosis and embolism; Z95.5 Presence of coronary angioplasty implant and graft; X58.XXXA Exposure to other specified factors, initial encounter; Y93.89 Activity, other specified; Y92.89 Other specified places as the place of occurrence of the external cause; Y99.8 Other external cause status
CPT/HCPCS: 73600; 73630; 93971; 99284